=== PATIENT | male | born 1950 | race Caucasian/White ===

== ENCOUNTER → 2021-05-10 12:56 | Outpatient (BNVA) | payer MEDICARE, SELFPAY | PROVIDERS: PCP Internal Medicine; Referring Provider Internal Medicine; Visit Provider Physical Therapy Assistant | DX: L98.9 Disorder of the skin and subcutaneous tissue, unspecified (principal); I10 Essential (primary) hypertension; J44.9 Chronic obstructive pulmonary disease, unspecified; Z87.891 Personal history of nicotine dependence | CPT/HCPCS: 36415; 99203 ==

== ENCOUNTER 2021-05-10 20:25 | Outpatient (REF) | payer MEDICARE, SELFPAY ==
[2021-05-10 15:32] LABS: Abs Immature Grans 0.02 10^3/uL (0.0-0.06); Absolute Basophil Count 0.05 10^3/uL (0.0-0.2); Absolute Eosinophil Count 0.57 10^3/uL (0.0-0.7); Absolute Lymphocyte Count 0.93 10^3/uL (1.2-3.4); Absolute Monocyte Count 1.08 10^3/uL (0.1-0.8); Absolute Neutrophil Count 4.83 10^3/uL (1.2-6.7); Basophils % 0.7; Eosinophils % 7.6; HGB 14.7 g/dL (13.5-17.5); Immature Grans % 0.3; Lymphocytes % 12.4; MCH 36.1 pg (27.0-33.0); MCHC 39.7 % (32.0-36.0); MCV 90.9 fL (80-95); MPV 9.7 fL (8.0-11.0); Monocytes % 14.4; Neutrophils % 64.6; Nucleated RBC 0 %; Platelet Count 252 10^3/uL (130-400); RBC 4.07 10^6/uL (4.36-5.78); RDW 18.5 % (11.8-14.1); WBC 7.48 10^3/uL (4.4-10.8)
[2021-05-10 15:43] LABS: ALT 21 U/L (16-63); AST 16 U/L (15-37); Albumin 4.3 g/dL (3.4-5.0); Alkaline Phosphatase 97 U/L (46-116); Anion Gap 8.3 mmol/L (3-11); BUN 19 mg/dL (7-18); Bilirubin, Total 0.6 mg/dL (0.2-1.0); CO2 25.7 mmol/L (21.0-32.0); Calcium 8.7 mg/dL (8.5-10.1); Chloride 109 mmol/L (98-107); Glucose 80 mg/dL (74-106); Potassium 4.1 mmol/L (3.5-5.1); Sodium 143 mmol/L (136-145); Total Protein 7.5 g/dL (6.4-8.2)
[2021-05-10 15:50] LABS: Anisocytosis 1+; Diff Comment 1; Macrocytosis 1+; Microcytosis 1+
== END 2021-05-10 20:26 | disposition home or self-care (01) ==
LOC: LBN 20:25
PROVIDERS: PCP Internal Medicine; Visit Provider Physical Therapy Assistant
DX: L98.9 Disorder of the skin and subcutaneous tissue, unspecified (principal)
CPT/HCPCS: 80053; 85025

== ENCOUNTER 2021-05-21 01:08 | Outpatient (CLI) | payer MEDICARE, SELFPAY ==
--- NOTE | 2021-05-21 07:15 | DI.CT_ITS ---
Exam(s) CT NECK W EXAM: CT NECK W CLINICAL HISTORY: scalp lesion, Fm Hx head/neck cx and lung cx,l98.9. TECHNIQUE: Imaging Protocol: Axial computed tomography images with coronal and sagittal reformatted images were created and reviewed CONTRAST MATERIAL: Intravenous: Omnipaque 350 Contrast volume:100 cc given for chest CT COMPARISON: CT CT HEAD WO/W from 05/21/2021 FINDINGS: Parotids/submandibular/thyroid gland: Normal. Lymphadenopathy: There numerous bilateral small lymph nodes in the posterior chains, more numerous t granda normal. All are less than a centimeter in size. Multiple small supraclavicular nodes are seen. Carotids/Jugular: Within normal limits. Soft tissues: The floor the mouth is unremarkable. The epiglottis and vocal cords are within normal limits. Images through both lung apices are unremarkable. Bones: degenerative changes in the cervical spine. No lytic or blastic lesions identified. IMPRESSION: Multiple tiny bilateral lymph nodes, more numerous in normal, in posterior changes well as supraclavi cular regions. RADIATION DOSE DELIVERED: 3001.46 mGy.cm Total DLP DATA REPOSITORY: All CT scans at this facility are submitted to the National Radiology Data Registry (NRDR) Dose Index Registry (DIR) with the [employer] (ACR). RADIATION OPTIMIZATION: All CT scans at this facility use at least one of these dose optimization te chniques: automated exposure control; mA and/or kV adjustment per patient size (includes targeted exa ms where dose is matched to clinical indication); or iterative reconstruction.
--- NOTE | 2021-05-21 07:15 | DI.CT_ITS ---
Exam(s) CT HEAD WO/W EXAM: CT HEAD WO/W CLINICAL HISTORY: scalp lesion, Fm Hx head/neck cx and lung cx,l98.9. TECHNIQUE: Imaging Protocol: Axial computed tomography images with coronal and sagittal reformatted images were created and reviewed. CONTRAST MATERIAL: Intravenous: Omnipaque 350 Contrast volume:100 cc given before chest CT. COMPARISON: CT CT CHEST W from 05/21/2021 FINDINGS: Ventricles and Extra axial spaces: Normal in size and morphology for the patient's age. Hemorrhage: None. Cerebral parenchyma: Normal. Enhancement: No suspicious enhancement in the brain.. Midline shift: None. Brainstem/Cerebellum: Normal. Calvarium: Normal. Scalp: Marked abnormal masslike thickening of the skin and underlying soft tissues of the scalp with approximate measurements 4.2 transverse by 1.5 AP by 4.8 cephalo caudad. There is some in extension inferiorly with nodularity along the scalp. Several other bilateral abnormal in the enhancing soft t issue nodules are noted in the subcutaneous fat. This shows enhancement following contrast. No defi nite adjacent bony destruction. Visualized Paranasal sinuses/Mastoids: Mucosal thickening ethmoid and maxillary sinuses. Mastoids cl ear. Orbits: Prosthetic left globe. IMPRESSION: Marked thickening with enhancement of the scalp and underlying subcutaneous fat with extending hot cell technician iorly along the skull. No definite bony invasion. No intracranial abnormality. RADIATION DOSE DELIVERED: Total DLP DATA REPOSITORY: All CT scans at this facility are submitted to the National Radiology Data Registry (NRDR) Dose Index Registry (DIR) with the [employer] (ACR). RADIATION OPTIMIZATION: All CT scans at this facility use at least one of these dose optimization te chniques: automated exposure control; mA and/or kV adjustment per patient size (includes targeted exa ms where dose is matched to clinical indication); or iterative reconstruction.
--- NOTE | 2021-05-21 07:15 | DI.CT_ITS ---
Exam(s) CT CHEST W EXAM: CT CHEST W CLINICAL HISTORY: scalp lesion, Fm Hx head/neck cx and lung cx,l98.9 TECHNIQUE: Imaging Protocol: Axial computed tomography images with coronal and sagittal reformatted images were created and reviewed CONTRAST MATERIAL: Intravenous: Omnipaque 350 Contrast volume:100 cc COMPARISON: No exams were available for comparison FINDINGS: Tracheobronchial tree: No bronchiectasis or mucous plugging. Mediastinum and Gina: No dominant adenopathy or fluid collection. Pulmonary parenchyma: Scattered tiny nodules, likely granulomas. No consolidation or dominant measura ble mass. Pleura: No effusion or pneumothorax. Heart: The heart is not dilated. No coronary artery calcifications are seen. Aorta: Thoracic aorta non-dilated. Upper abdomen: Kidneys are partially included on the exam. There is abnormal masslike soft tissue de nsity in the region of the renal pelves bilaterally there are tiny nonobstructing bilateral stones. T he nephrograms are symmetric. Small cysts are noted at the upper pole of the left kidney. The spleen is abnormally enlarged, 15 cm AP. It is not fully included on the exam. No focal splenic lesion. The liver and gallbladder as well as adrenals and visualized portions of the pancreas are unremarkable. Lymph nodes: Multiple bilateral axillary lymph nodes, largest measuring 15 millimeters, more numerous than usual. Bones: No lytic or blastic lesions. Mild degenerative changes in the spine. Soft tissues: Unremarkable. IMPRESSION: Multiple small bilateral axillary lymph nodes, more numerous than normal. Abnormal soft tissue density bilaterally in the renal pelves. Further evaluation with abdomen pelvic CT is recommended. Splenomegaly. RADIATION DOSE DELIVERED: Total DLP DATA REPOSITORY: All CT scans at this facility are submitted to the National Radiology Data Registry (NRDR) Dose Index Registry (DIR) with the [employer] (ACR). RADIATION OPTIMIZATION: All CT scans at this facility use at least one of these dose optimization te chniques: automated exposure control; mA and/or kV adjustment per patient size (includes targeted exa ms where dose is matched to clinical indication); or iterative reconstruction.
[2021-05-21] MEDS: Omnipaque 350 MG/ML 100 ML BTL IJ (09:16)
== END 2021-05-21 01:28 ==
PROVIDERS: PCP Internal Medicine; Visit Provider Physical Therapy Assistant
DX: L98.8 Other specified disorders of the skin and subcutaneous tissue (principal); Z80.1 Family history of malignant neoplasm of trachea, bronchus and lung; Z80.8 Family history of malignant neoplasm of other organs or systems; R59.0 Localized enlarged lymph nodes; N20.0 Calculus of kidney; N28.1 Cyst of kidney, acquired; R16.1 Splenomegaly, not elsewhere classified; R93.89 Abnormal findings on diagnostic imaging of other specified body structures; R23.4 Changes in skin texture
CPT/HCPCS: 70491; 70470; 71260; J3490

== ENCOUNTER 2021-05-29 02:00 | Outpatient (CLI) | payer MEDICARE, SELFPAY ==
--- NOTE | 2021-05-29 07:15 | DI.CT_ITS ---
Exam(s) CT ABDOMEN WO/W EXAM: CT ABDOMEN WO/W CLINICAL HISTORY: enlarged nodes/spleen,scalp lesion,r16.1,r59.1,l98.9 TECHNIQUE: Imaging Protocol: Axial computed tomography images with coronal and sagittal reformatted images were created and reviewed CONTRAST MATERIAL: Intravenous: Omnipaque 350 Contrast volume:100 mL Oral: No COMPARISON: CT CT CHEST W from 05/21/2021 FINDINGS: ABDOMEN: Lung Bases: Normal where visualized. Liver: Normal density. No measurable mass. The liver measures 19.5 cm long. Portal, Superior Mesenteric, and Splenic Veins: Unremarkable. Gallbladder and Biliary Tract: No radiodense calculus or dilation. Pancreas: Normal density, no abnormal calcifications or inflammatory process. Spleen: The spleen measures 15 cm long. Adrenals: No masses seen. Kidneys: Normal size, contour and axis. There are multiple bilateral nonobstructing stones. The larg est is in the midpole of the left kidney and measures 0.6 cm. There is wall thickening of the proxim al renal pelves bilaterally, left greater than right. It measures up to 1.1 cm on the left. There i s no hydronephrosis present. Bilateral renal cysts are present. They appear simple. The largest is in the left kidney and measures 2 cm. Abdominal Aorta: Abdominal portion non-dilated. Atherosclerosis. Bowel: No obstruction or bowel wall thickening. There is diverticulosis seen in the colon, but no ev idence of acute diverticulitis. Peritoneal Cavity: No ascites, collection or mesenteric inflammatory response. No free air. Lymph Nodes: Within normal limits. Bones: Within normal limits for the patient's age. Soft Tissues: Unremarkable. IMPRESSION: 1. Diffuse wall thickening of the renal pelves bilaterally, left greater than right. Differential co nsiderations include neoplasm, infectious/inflammatory pyelitis. Urology consult is recommended for further evaluation. 2. Bilateral nephrolithiasis. 3. Hepatosplenomegaly. 4. Colonic diverticulosis. No evidence of acute diverticulitis. 5. Bilateral simple renal cysts. RADIATION DOSE DELIVERED: 1,681.65mGy.cm Total DLP DATA REPOSITORY: All CT scans at this facility are submitted to the National Radiology Data Registry (NRDR) Dose Index Registry (DIR) with the [employer] (ACR). RADIATION OPTIMIZATION: All CT scans at this facility use at least one of these dose optimization te chniques: automated exposure control; mA and/or kV adjustment per patient size (includes targeted exa ms where dose is matched to clinical indication); or iterative reconstruction.
[2021-05-29] MEDS: Omnipaque 350 MG/ML 100 ML BTL IJ (09:39)
[2021-05-29] MEDS: Normal Saline Flush 10 ML SYR IVP (09:40)
== END 2021-05-29 02:20 ==
PROVIDERS: PCP Internal Medicine; Visit Provider Surgery
DX: R16.2 Hepatomegaly with splenomegaly, not elsewhere classified (principal); R59.1 Generalized enlarged lymph nodes; N20.0 Calculus of kidney; N28.1 Cyst of kidney, acquired; K57.30 Diverticulosis of large intestine without perforation or abscess without bleeding; N28.89 Other specified disorders of kidney and ureter
CPT/HCPCS: 74170; J3490

== ENCOUNTER 2021-06-06 01:22 | Outpatient (CLI) | payer MEDICARE, SELFPAY ==
--- NOTE | 2021-06-06 07:30 | DI.US_ITS ---
Exam(s) US RENAL EXAM: US RENAL CLINICAL HISTORY: mass in kidney/hx of smoking,n28.89. TECHNIQUE: Arellano scale, color and spectral Doppler were used. COMPARISON: CT CT ABDOMEN WO/W from 05/29/2021 FINDINGS: Renal size in cm: Right: 9.9 left: 10.8 Echogenicity: Cortical echogenicity is normal. There is abnormal intermediate echogenicity within mariella th renal pelves extending along the inferomedial aspect of both kidneys this corresponds with the abn ormal densities seen on recent CT. This is not well visualized by ultrasound. The findings on CT ar e suspicious for masses. Hydronephrosis: No Cyst or mass: 1 centimeters cyst upper pole left kidney. 9 millimeters cyst near the near the lower pole of the right kidney. Nephrolithiasis: No Bladder:Normal Prevoid vol:177 cc Postvoid vol:Patient unable to void. Prostate volume 13 cc IMPRESSION: Abnormal masslike densities in the region of both renal pelves and extending inferiorly along the me dial aspect of both kidneys bilateral stones and cysts are present. There is no hydronephrosis. DATA REPOSITORY:
== END 2021-06-06 01:42 ==
PROVIDERS: PCP Internal Medicine; Visit Provider Surgery
DX: N28.89 Other specified disorders of kidney and ureter (principal); Z87.891 Personal history of nicotine dependence; N28.1 Cyst of kidney, acquired
CPT/HCPCS: 76770

== ENCOUNTER 2021-06-13 10:19 | Emergency (ER) | payer MEDICARE, SELFPAY ==
[2021-06-13 10:23] VITALS: BP 153/72; PULSE 70; RESP 16; TEMP 36.4; O2SAT 98
--- NOTE | 2021-06-13 10:30 | DI.RAD_ITS ---
Exam(s) XR TIB/FIB RT EXAM: XR TIB/FIB RT CLINICAL HISTORY: Proximal leg pain TECHNIQUE: COMPARISON: No exams were available for comparison FINDINGS: Three views were obtained. No bony or soft tissue abnormality seen. IMPRESSION: RADIATION DOSE DELIVERED: Total DLP
--- NOTE | 2021-06-13 10:30 | DI.US_ITS ---
Exam(s) US LOWER EXTREMITY VENOUS RT EXAM: US LOWER EXTREMITY VENOUS RT CLINICAL HISTORY: Right lower leg swelling and pain. TECHNIQUE: Ultrasound performed using standard protocol. COMPARISON: US US RENAL from 06/06/2021 FINDINGS: Duplex venous ultrasound was performed according to the usual protocol. The deep veins are freely com pressible throughout and there is normal flow augmentation with manual calf compression. 2D and Doppl er evaluation are unremarkable. IMPRESSION: No evidence of deep venous thrombosis of the right lower extremity. DATA REPOSITORY:
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
== END 2021-06-13 11:57 | disposition home or self-care (01) ==
PROVIDERS: Emergency Provider Nurse Practitioner Family; PCP Internal Medicine
DX: M79.604 Pain in right leg (principal); R22.41 Localized swelling, mass and lump, right lower limb
CPT/HCPCS: 99284; 73590; 93971; 99283

== ENCOUNTER → 2021-06-18 14:13 | Outpatient (BNVA) | payer MEDICARE, SELFPAY | PROVIDERS: PCP Internal Medicine; Referring Provider Internal Medicine; Visit Provider Surgery | DX: R22.0 Localized swelling, mass and lump, head (principal); N28.89 Other specified disorders of kidney and ureter | CPT/HCPCS: 11626; 99213 ==

== ENCOUNTER 2021-06-18 16:37 | Outpatient (REF) | payer MEDICARE, SELFPAY ==
--- NOTE | 2021-06-18 15:00 | SKI_PTH ---
PATIENT: Layton Fuller LOC: [facility] U#:[id number] AGE/SX: 71/M ROOM: RE06/18/[address]: Pauline Becerra : 1950 BED: DIS: 06/18/2021 SPEC #: [id number] RECD: 06/18/21 16:55 STATUS: WIL DONALDSON #: [id number] ZACH: 06/18/21 15:[address]: Pauline Becerra DEPT: Surgical Specimen RECD BY: Jennifer Mccloud ENTERED: 06/18/21 16:55 SP TYPE: NICOLLE GALVAN DR: Lisha Hanna Tissues: 1 - SKIN BIOPSY(SHAVE/PUNCH) Procedures: IMMUNOPEROXIDASE STAIN SKIN LEVEL 4 Single Probe In Situ Hybridization MIB-1 IHC Semi Quantative % B-Cell Lymphoma, FISH, Tissue BLYM, Additional Probe BCL-6 IHC Stain BCL-2 IHC Stain MYC IHC Stain Comments: [id number]
== END 2021-06-18 16:38 | disposition home or self-care (01) ==
LOC: LBN 16:37
PROVIDERS: PCP Internal Medicine; Visit Provider Surgery
DX: R22.0 Localized swelling, mass and lump, head (principal)
CPT/HCPCS: 88341; 88360; 88368; 88377; 88305; 88361

== ENCOUNTER 2021-06-18 21:10 | Outpatient (REF) | payer MEDICARE, SELFPAY | END 2021-06-18 21:11 | disposition home or self-care (01) | LOC: LBN 21:10 | PROVIDERS: PCP Internal Medicine; Visit Provider Surgery ==

== ENCOUNTER → 2021-06-20 08:38 | Outpatient (BNVA) | payer MEDICARE, SELFPAY | PROVIDERS: PCP Internal Medicine; Referring Provider Internal Medicine; Visit Provider Nurse Practitioner Gerontology | DX: N28.89 Other specified disorders of kidney and ureter (principal) | CPT/HCPCS: 51798; 81003; 99215 ==

== ENCOUNTER → 2021-06-28 09:20 | Outpatient (BNVA) | payer MEDICARE, SELFPAY | PROVIDERS: PCP Internal Medicine; Referring Provider Internal Medicine; Visit Provider Surgery | DX: C85.19 Unspecified B-cell lymphoma, extranodal and solid organ sites (principal) | CPT/HCPCS: 99214 ==

== ENCOUNTER 2021-12-19 15:01 | Outpatient (CLI) | payer MEDICARE, SELFPAY ==
[2021-12-19 14:02] LABS: Absolute Eosinophil Count 0.07 10^3/uL (0.0-0.7); HCT 23.9 % (40.0-50.0); MCH 28.5 pg (27.0-33.0); MCHC 33.5 % (32.0-36.0); MCV 85 fL (80-95); MPV 9.8 fL (8.0-11.0); RBC 2.81 10^6/uL (4.36-5.78); RDW 15.6 % (11.8-14.1); RDW-SD 48.3 fL
[2021-12-19 14:10] LABS: ALT 24 U/L (16-63); AST 16 U/L (15-37); Albumin 3.1 g/dL (3.4-5.0); Alkaline Phosphatase 110 U/L (46-116); BUN 39 mg/dL (7-18); Bilirubin, Total 0.3 mg/dL (0.2-1.0); CREATININE 1.6 mg/dL (0.70-1.30); Calcium 9.1 mg/dL (8.5-10.1); Chloride 105 mmol/L (98-107); Estimated GFR 46.35 (mL/min/1.73m2); Glucose 81 mg/dL (74-106); LDH 208 U/L (85-227); Potassium 3.3 mmol/L (3.5-5.1); Sodium 141 mmol/L (136-145); Total Protein 5.8 g/dL (6.4-8.2)
[2021-12-19 14:36] LABS: Absolute Lymphocyte Count 0.32 10^3/uL (1.2-3.4); Atypical Lymphocytes % 0; Platelet Count 76 10^3/uL (130-400)
[2021-12-19 14:37] LABS: Absolute Monocyte Count 0.04 10^3/uL (0.1-0.8); Other Cells % 2
[2021-12-19 14:38] LABS: Absolute Neutrophil Count 0.02 10^3/uL (1.2-6.7)
[2021-12-19 14:39] LABS: WBC 0.45 10^3/uL (4.4-10.8)
[2021-12-19 14:42] LABS: RBC Morphology Normal
[2021-12-19 16:52] LABS: PHOSPHORUS 2.9 mg/dL (2.6-4.7); Uric Acid 5.1 mg/dL (3.5-7.2)
== END 2021-12-19 15:02 | disposition home or self-care (01) ==
LOC: LBO 15:02
PROVIDERS: PCP Internal Medicine; Visit Provider Internal Medicine Hematology & Oncology
DX: C83.38 Diffuse large B-cell lymphoma, lymph nodes of multiple sites (principal)
CPT/HCPCS: 36415; 80053; 83615; 84100; 84550; 85025

== ENCOUNTER 2021-12-26 11:14 | Outpatient (CLI) | payer MEDICARE, SELFPAY ==
[2021-12-26 08:36] LABS: HCT 25.2 % (40.0-50.0); HGB 8.1 g/dL (13.5-17.5); MCH 28.9 pg (27.0-33.0); MCHC 32.1 % (32.0-36.0); MCV 90 fL (80-95); MPV 9.1 fL (8.0-11.0); Platelet Count 191 10^3/uL (130-400); RDW-SD 52.5 fL; WBC 14.83 10^3/uL (4.4-10.8)
[2021-12-26 08:51] LABS: ALT 93 U/L (16-63); AST 29 U/L (15-37); Absolute Monocyte Count 0.44 10^3/uL (0.1-0.8); Albumin 3.3 g/dL (3.4-5.0); Alkaline Phosphatase 256 U/L (46-116); Anion Gap 4.4 mmol/L (3-11); BUN 17 mg/dL (7-18); Bands % 6; Bilirubin, Total 0.3 mg/dL (0.2-1.0); CO2 30.6 mmol/L (21.0-32.0); CREATININE 1.6 mg/dL (0.70-1.30); Calcium 8.6 mg/dL (8.5-10.1); Chloride 107 mmol/L (98-107); Diff Comment Manual Differential; Estimated GFR 46.35 (mL/min/1.73m2); Glucose 88 mg/dL (74-106); LDH 187 U/L (85-227); Metamyelocytes % 4; RBC Morphology Normal; Sodium 142 mmol/L (136-145); Total Protein 6.2 g/dL (6.4-8.2)
[2021-12-26 10:07] LABS: Uric Acid 4.6 mg/dL (3.5-7.2)
== END 2021-12-26 11:15 | disposition home or self-care (01) ==
LOC: LBO 11:15
PROVIDERS: PCP Internal Medicine; Visit Provider Internal Medicine Hematology & Oncology
DX: C83.38 Diffuse large B-cell lymphoma, lymph nodes of multiple sites
CPT/HCPCS: 36415; 80053; 83615; 84550; 85025

== ENCOUNTER 2022-01-23 08:00 | Outpatient (RCR) | payer MEDICARE, SELFPAY ==
[2022-01-02] MEDS: Normal Saline Flush 10 ML SYR IVP (08:22)
[2022-01-02 08:44] LABS: MCH 29.6 pg (27.0-33.0); MCHC 33.3 % (32.0-36.0); MCV 89 fL (80-95); MPV 8.8 fL (8.0-11.0); Platelet Count 434 10^3/uL (130-400); RBC 3.04 10^6/uL (4.36-5.78); RDW 18.6 % (11.8-14.1); RDW-SD 55.8 fL; WBC 12.72 10^3/uL (4.4-10.8)
[2022-01-02 09:15] LABS: Absolute Basophil Count 0.13 10^3/uL (0.0-0.2); Absolute Lymphocyte Count 0.38 10^3/uL (1.2-3.4); Absolute Monocyte Count 1.14 10^3/uL (0.1-0.8); Absolute Neutrophil Count 10.43 10^3/uL (1.2-6.7); Bands % 7; Diff Comment Manual Differential; Metamyelocytes % 3; Myelocytes % 2; RBC Morphology Normal
[2022-01-02 09:29] LABS: ALT 22 U/L (16-63); AST 13 U/L (15-37); Albumin 3.4 g/dL (3.4-5.0); Alkaline Phosphatase 197 U/L (46-116); BUN 27 mg/dL (7-18); Bilirubin, Total 0.2 mg/dL (0.2-1.0); CREATININE 1.1 mg/dL (0.70-1.30); Calcium 8.3 mg/dL (8.5-10.1); Chloride 108 mmol/L (98-107); Estimated GFR 72.67 (mL/min/1.73m2); Glucose 93 mg/dL (74-106); LDH 183 U/L (85-227); Potassium 4.3 mmol/L (3.5-5.1); Sodium 143 mmol/L (136-145); Total Protein 6.5 g/dL (6.4-8.2); Uric Acid 3.6 mg/dL (3.5-7.2)
[2022-01-09] MEDS: Heparin 500 UNITS/5 ML SYRINGE IV (10:17)
[2022-01-09] MEDS: Normal Saline Flush 10 ML SYR IVP (10:17)
[2022-01-09 10:25] LABS: HCT 25.6 % (40.0-50.0); HGB 8.6 g/dL (13.5-17.5); MCH 29.1 pg (27.0-33.0); MCHC 33.6 % (32.0-36.0); MCV 87 fL (80-95); MPV 8.9 fL (8.0-11.0); Platelet Count 237 10^3/uL (130-400); RBC 2.96 10^6/uL (4.36-5.78); RDW 18.6 % (11.8-14.1); RDW-SD 57.1 fL; WBC 3.91 10^3/uL (4.4-10.8)
[2022-01-09 10:40] LABS: ALT 21 U/L (16-63); AST 13 U/L (15-37); Albumin 3.3 g/dL (3.4-5.0); Alkaline Phosphatase 155 U/L (46-116); Anion Gap 7.1 mmol/L (3-11); BUN 33 mg/dL (7-18); Bilirubin, Total 0.2 mg/dL (0.2-1.0); CO2 26.9 mmol/L (21.0-32.0); CREATININE 1.2 mg/dL (0.70-1.30); Calcium 8.2 mg/dL (8.5-10.1); Chloride 107 mmol/L (98-107); Estimated GFR 65.46 (mL/min/1.73m2); Glucose 90 mg/dL (74-106); LDH 117 U/L (85-227); Potassium 4.3 mmol/L (3.5-5.1); Sodium 141 mmol/L (136-145); Uric Acid 3.8 mg/dL (3.5-7.2)
[2022-01-09 10:53] LABS: Absolute Neutrophil Count 3.25 10^3/uL (1.2-6.7)
[2022-01-09 10:54] LABS: Absolute Basophil Count 0.12 10^3/uL (0.0-0.2); Absolute Lymphocyte Count 0.35 10^3/uL (1.2-3.4); Atypical Lymphocytes % 1; Diff Comment Manual Differential; RBC Morphology Normal
[2022-01-23 08:36] LABS: Absolute Basophil Count 0.07 10^3/uL (0.0-0.2); Absolute Eosinophil Count 0.08 10^3/uL (0.0-0.7); Absolute Lymphocyte Count 0.54 10^3/uL (1.2-3.4); Absolute Monocyte Count 0.84 10^3/uL (0.1-0.8); Absolute Neutrophil Count 3.62 10^3/uL (1.2-6.7); Basophils % 1.3; Eosinophils % 1.5; HCT 29.2 % (40.0-50.0); HGB 9.9 g/dL (13.5-17.5); Immature Grans % 1.9; Lymphocytes % 10.3; MCH 30.3 pg (27.0-33.0); MCHC 33.9 % (32.0-36.0); MCV 89 fL (80-95); MPV 8.6 fL (8.0-11.0); Platelet Count 230 10^3/uL (130-400); RBC 3.27 10^6/uL (4.36-5.78); RDW-SD 66.1 fL; WBC 5.25 10^3/uL (4.4-10.8)
[2022-01-23] MEDS: Normal Saline Flush 10 ML SYR IVP (08:45)
[2022-01-23 08:47] LABS: Anisocytosis 2+; Diff Comment RBC Morph Reviewed
[2022-01-23 08:52] LABS: ALT 15 U/L (16-63); AST 13 U/L (15-37); Albumin 3.5 g/dL (3.4-5.0); Alkaline Phosphatase 104 U/L (46-116); Anion Gap 4.8 mmol/L (3-11); BUN 34 mg/dL (7-18); Bilirubin, Total 0.3 mg/dL (0.2-1.0); CO2 28.2 mmol/L (21.0-32.0); CREATININE 1.1 mg/dL (0.70-1.30); Calcium 8.7 mg/dL (8.5-10.1); Chloride 107 mmol/L (98-107); Estimated GFR 72.67 (mL/min/1.73m2); Glucose 98 mg/dL (74-106); LDH 121 U/L (85-227); Potassium 4.2 mmol/L (3.5-5.1); Sodium 140 mmol/L (136-145); Total Protein 6.2 g/dL (6.4-8.2); Uric Acid 5.2 mg/dL (3.5-7.2)
== END 2022-01-23 23:59 | disposition home or self-care (01) ==
LOC: INF 08:00
PROVIDERS: PCP Internal Medicine; Visit Provider Internal Medicine Hematology & Oncology
DX: C83.38 Diffuse large B-cell lymphoma, lymph nodes of multiple sites (principal); Z45.2 Encounter for adjustment and management of vascular access device
CPT/HCPCS: 36591; 80053; 86850; 86900; 86901; 83615; 84550; 85025

== ENCOUNTER 2022-01-30 09:38 | Inpatient (IN) | payer MEDICARE, SELFPAY ==
[2022-01-30] VITALS (12 sets, daily range): BP systolic 107–158; BP diastolic 55–81; PULSE 81–105; RESP 15–18; TEMP 36.6–38; O2SAT 97–100
--- NOTE | 2022-01-30 10:00 | DI.CT_ITS ---
Exam(s) CT FACIAL W EXAM: CT FACIAL W CLINICAL HISTORY: fever, tooth infection ? #10 TECHNIQUE: COMPARISON: CT CT NECK W from 05/21/2021 FINDINGS: CT examination of the facial region was performed utilizing multi slice acquisition and multiplanar r econstruction. This examination was obtained with intravenous infusion of 100 cc of Omnipaque 350. Visualized portions of the brain are unremarkable. Left optic globe prosthesis noted. No intra orbi zak fluid collection or mass. Mild mucoperiosteal thickening of ethmoid air cells noted consistent with mild chronic sinusitis. No gross erosive or destructive process seen in the region surveyed. There is poor dentition. No gr oss mandibular or maxillary erosive or destructive lesion seen. Visualized upper airway is unremarka ble. IMPRESSION: No facial abscess or significant bony destructive lesion. RADIATION DOSE DELIVERED: 565.25mGy.cm Total DLP DATA REPOSITORY: All CT scans at this facility are submitted to the National Radiology Data Registry (NRDR) Dose Index Registry (DIR) with the [employer] (ACR). RADIATION OPTIMIZATION: All CT scans at this facility use at least one of these dose optimization te chniques: automated exposure control; mA and/or kV adjustment per patient size (includes targeted exa ms where dose is matched to clinical indication); or iterative reconstruction.
[2022-01-30 10:36] LABS: HCT 24.4 % (40.0-50.0); HGB 8.4 g/dL (13.5-17.5); MCH 30.7 pg (27.0-33.0); MCHC 34.4 % (32.0-36.0); MCV 89 fL (80-95); Platelet Count 116 10^3/uL (130-400); RBC 2.74 10^6/uL (4.36-5.78); RDW 20.1 % (11.8-14.1); RDW-SD 63.6 fL
[2022-01-30 10:38] LABS: Lactate 0.5 mmol/L (0.9-1.7)
[2022-01-30] MEDS: Normal Saline-STERILE FIELD 0.9% 10 ML SYR (10:45)
[2022-01-30] MEDS: Normal Saline 500 ML IV (10:45)
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
[2022-01-30 10:56] LABS: Bilirubin Negative (Negative); Blood Negative (Negative); Clarity Clear (Clear); Glucose Negative (Negative); Ketones Negative (Negative); Leukocyte Esterase Negative (Negative); Nitrite Negative (Negative); Specific Gravity 1.025 (1.005-1.025); Urobilinogen 0.2 EU/dL (Up TO 0.2)
[2022-01-30 10:58] LABS: ALT 17 U/L (16-63); AST 16 U/L (15-37); Albumin 3.5 g/dL (3.4-5.0); Alkaline Phosphatase 105 U/L (46-116); Anion Gap 6.7 mmol/L (3-11); BUN 32 mg/dL (7-18); Bilirubin, Total 0.4 mg/dL (0.2-1.0); CO2 28.3 mmol/L (21.0-32.0); CREATININE 0.9 mg/dL (0.70-1.30); Calcium 8.4 mg/dL (8.5-10.1); Chloride 102 mmol/L (98-107); Estimated GFR 92.45 (mL/min/1.73m2); Glucose 76 mg/dL (74-106); Magnesium 1.6 mg/dL (1.8-2.4); Potassium 4.2 mmol/L (3.5-5.1); Sodium 137 mmol/L (136-145); Total Protein 6.1 g/dL (6.4-8.2)
[2022-01-30 11:05] LABS: Bands % 2
[2022-01-30 11:06] LABS: Absolute Basophil Count 0.03 10^3/uL (0.0-0.2); Absolute Lymphocyte Count 0.19 10^3/uL (1.2-3.4); Absolute Monocyte Count 0.03 10^3/uL (0.1-0.8); Absolute Neutrophil Count 0.29 10^3/uL (1.2-6.7); WBC 0.63 10^3/uL (4.4-10.8)
[2022-01-30 11:07] LABS: Anisocytosis 2+; Diff Comment Manual Differential
[2022-01-30 11:11] LABS: Influenza A PCR Negative (Negative); Influenza B PCR Negative (Negative); RSV PCR Negative (Negative)
--- NOTE | 2022-01-30 11:15 | DI.CT_ITS ---
Exam(s) CT CHEST WO EXAM: CT CHEST WO CLINICAL HISTORY: fever, cough TECHNIQUE: CT examination of the chest was performed without contrast administration. COMPARISON: CT CT CHEST W from 05/21/[address] FACIAL W from 01/30/2022 FINDINGS: Images obtained through the upper abdomen show unremarkable appearance of visualized portions of the liver and spleen except for possible mild splenomegaly. Note is made of a nonobstructing right josé miguel l calculus. There are presumed small left renal cysts. There is no mediastinal or hilar adenopathy. Mediastinal vascular structures appear intact by noncon trast criteria. Tracheobronchial tree appears intact. No pleural effusion or pleural-based mass. The lungs are predominantly clear, however there is a new irregular 7 millimeter mean diameter pulmon christian nodule in the right lower lobe at the lung base posteriorly which was not present on prior CT of April 2021. In this setting of neoplastic disease, this would be suspicious for metastasis. No heriberto tional suspicious nodule or consolidation seen. Note is made of new destructive lesion left scapula, this was not present prior examination. No othe r focal bony lesion identified.. IMPRESSION: New left scapular destructive lesion, suspicious for metastatic disease. New right lower lobe pulmonary nodule, 7 millimeter, also suspicious for metastatic disease RADIATION DOSE DELIVERED: 510.87mGy.cm Total DLP !Error CTDIvol 510.87mGy.cm Total DLP DATA REPOSITORY: All CT scans at this facility are submitted to the National Radiology Data Registry (NRDR) Dose Index Registry (DIR) with the [employer] ([employer]). RADIATION OPTIMIZATION: All CT scans at this facility use at least one of these dose optimization te chniques: automated exposure control; mA and/or kV adjustment per patient size (includes targeted exa ms where dose is matched to clinical indication); or iterative reconstruction.
[2022-01-30 11:16] LABS: Source Nasopharynx
[2022-01-30 11:17] LABS: COVID-19 PCR Positive (Negative)
[2022-01-30] MEDS: Omnipaque 350 MG/ML 500 ML BTL-Imaging package IJ (11:48)
[2022-01-30] MEDS: Normal Saline - Diluent 50 ML VIAL IJ (11:49)
[2022-01-30] MEDS: CEFEPIME 2 GM in Normal Saline 100 ML IVPB ×2 (11:59→18:05)
[2022-01-30] MEDS: Magnesium Oxide 400 MG TAB PO (11:59)
[2022-01-30] MEDS: REMDESIVIR 200 MG in Normal Saline 250 ML 250 MG IVPB (12:36)
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
[2022-01-30 16:23] LABS: Lab Add On Test DONE
[2022-01-30 17:14] LABS: D-Dimer 303 ng/mlFEU (<500)
[2022-01-30] MEDS: Heparin 5,000 UNITS/ML VIAL 5000 UNITS SC (18:10)
[2022-01-30 18:36] LABS: Procalcitonin 0.1 ng/mL
[2022-01-30] MEDS: Acyclovir 400 MG TAB PO (19:36)
[2022-01-30] MEDS: Pantoprazole 40 MG TABCR PO (19:36)
[2022-01-30] MEDS: Normal Saline Flush 10 ML SYR IVP (19:41)
[2022-01-30] MEDS: Latanoprost 0.005% 2.5 ML BTL OP (22:35)
[2022-01-30] MEDS: Acetaminophen 325 MG TAB PO (22:41)
[2022-01-31] MEDS: CEFEPIME 2 GM in Normal Saline 100 ML IVPB ×3 (01:33→20:16)
[2022-01-31] MEDS: Normal Saline Flush 10 ML SYR IVP ×4 (01:34→20:16)
[2022-01-31] MEDS: Heparin 5,000 UNITS/ML VIAL 5000 UNITS SC ×3 (01:35→18:29)
[2022-01-31 03:39] LABS: Lab Add On Test DONE
[2022-01-31 07:10] LABS: Abs Immature Grans 0.01 10^3/uL (0.0-0.06); Absolute Basophil Count 0.01 10^3/uL (0.0-0.2); Absolute Eosinophil Count 0.06 10^3/uL (0.0-0.7); Absolute Lymphocyte Count 0.14 10^3/uL (1.2-3.4); Absolute Monocyte Count 0.05 10^3/uL (0.1-0.8); HCT 24.2 % (40.0-50.0); HGB 8.3 g/dL (13.5-17.5); MCHC 34.3 % (32.0-36.0); MCV 90 fL (80-95); MPV 9.8 fL (8.0-11.0); Platelet Count 104 10^3/uL (130-400); RBC 2.68 10^6/uL (4.36-5.78); RDW 19.8 % (11.8-14.1); RDW-SD 63.3 fL
[2022-01-31 07:16] LABS: WBC 0.32 10^3/uL (4.4-10.8)
[2022-01-31 07:28] LABS: Magnesium 1.7 mg/dL (1.8-2.4)
[2022-01-31 08:07] VITALS: BP 138/80; PULSE 79; RESP 16; TEMP 37; O2SAT 100
[2022-01-31 08:07] LABS: Bands % 1
[2022-01-31 08:08] LABS: Absolute Neutrophil Count 0.06 10^3/uL (1.2-6.7); Diff Comment Manual Differential; Hypochromasia 2+
[2022-01-31] MEDS: Cholecalciferol (Vitamin D3) 1,000 UNIT TAB 1000 UNITS PO (08:08)
[2022-01-31] MEDS: Fluconazole 100 MG TAB 200 MG PO (08:09)
[2022-01-31] MEDS: levoFLOXacin 250 MG TAB 750 MG PO (08:09)
[2022-01-31] MEDS: Pantoprazole 40 MG TABCR PO ×2 (08:10→20:17)
[2022-01-31] MEDS: Dronabinol 2.5 MG CAP PO ×2 (11:40→17:01)
[2022-01-31] MEDS: Acyclovir 400 MG TAB PO ×2 (11:40→20:15)
[2022-01-31] MEDS: REMDESIVIR 100 MG in Normal Saline 250 ML 250 MG IVPB (12:52)
[2022-01-31 15:43] VITALS: BP 124/63; PULSE 94; RESP 18; TEMP 37.2; O2SAT 100
--- NOTE | 2022-01-31 16:24 | W.PM.PROGNOT ---
Date of Service Date of service: 01/31/22 Time of Service: 16:24 Assessment and Plan Assessment and plan (1) Neutropenia: Status: Acute Assessment and plan: Secondary to his 3rd cycle of R-CHOP on 01/23/22. Not hospitalized with the previous 2 cycles. He endorsed to hospitalist that he had no fever at home but was having chills. Cont cefepime, levaquin, diflucan and acyclovir. MRSA screen pending. Monitor daily CBC. continue airborne precautions. So far blood cultures no growth x 24hr Professional time spent interviewing and examining patient, discussion of goals of care with hospital team (care management, nursing and consulting professionals) was 20 minutes. (2) COVID: Status: Acute Assessment and plan: No pulmonary findings on imaging. He has endorsed a cough with sputum. On cefepime. Procalcitonin 0.1, will recheck but continue empiric antibiotics until repeat procalcitonin remains negative and his WBC is recovering. Remdesivir treatment initiated d/t his risk of worsening Covid. Not requiring steroids as he has no incr. oxygen needs. (3) B-cell lymphoma of extranodal site: Status: Acute Assessment and plan: S/P 3 cycles of R-CHOP. Imaging today shows a new scapular lesion and a new pulmonary lesion that are suspicious for mets. (4) COPD (chronic obstructive pulmonary disease): Status: Chronic Assessment and plan: No exacerbation. PRN albuterol available. (5) Discharge planning issues: Status: Acute Assessment and plan: DNR/DNI Likely will d/c to home w/o services. Subjective Subjective Interval history since last seen: Patient states that he has had some productive cough of yellowish mucous. No fever or chills. No chest pains. I discussed w/ him his CT chest results. No pneumonia but he has new RLL nodule 7 mm suspicious for metastatic lesion and also a left scapular lesion also suspicious for mets. He was unaware of this. He reports having had recent PET/CT and that Dr. Palafox went over this with him. I told him that I would call her tomorrow to discuss his current CT findings and compare to his recent PET scan. I also told him that his ANC has dropped further to 6 Exam Narrative Exam Narrative: Layton is walking about his room. No dyspnea w/ activity. Not requiring supplemental oxygen Lungs: some coarse basilar breath sounds, no wheezing or rhonchi Heart: RRR Abdomen: soft, nontender Oropharynx: he has lost a tooth in the left upper jaw, one of his incisors and he has some residual tooth w/ caries Objective Last Vital Signs Temp 37.2 C 01/31/22 15:43 Pulse 94 H 01/31/22 15:43 Resp 18 01/31/22 15:43 BP 124/63 01/31/22 15:43 Pulse Ox 100 01/31/22 15:43 Laboratory Results - last 24 hr 01/30/22 01/30/22 01/30/22 10:23 12:23 Unknown WBC RBC Hgb Hct MCV MCH MCHC RDW Plt Count MPV Immature Gran % Neutrophils % Band Neutrophils % Lymphocytes % Monocytes % Eosinophils % Basophils % Nucleated RBC % Absolute Neutrophils Absolute Lymphocytes Absolute Monocytes Absolute Eosinophils Absolute Basophils RBC Morphology Hypochromasia D-Dimer 303 Magnesium Procalcitonin 0.1 Add-On Test Request DONE 01/31/22 01/31/22 06:20 06:20 WBC 0.32 L* RBC 2.68 L Hgb 8.3 L Hct 24.2 L MCV 90 MCH 31.0 MCHC 34.3 RDW 19.8 H Plt Count 104 L MPV 9.8 Immature Gran % See Differential Neutrophils % 18.0 Band Neutrophils % 1 Lymphocytes % 43.0 Monocytes % 17.0 Eosinophils % 18.0 Basophils % 4.0 Nucleated RBC % 0.0 Absolute Neutrophils 0.06 L* Absolute Lymphocytes 0.14 L Absolute Monocytes 0.05 L Absolute Eosinophils 0.06 Absolute Basophils 0.01 RBC Morphology See Below Hypochromasia 2+ D-Dimer Magnesium 1.7 L Procalcitonin Add-On Test Request
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
[2022-01-31 19:35] VITALS: BP 109/63; PULSE 84; RESP 17; TEMP 37.6; O2SAT 98
[2022-01-31] MEDS: Magnesium Oxide 400 MG TAB 800 MG PO (20:16)
[2022-01-31] MEDS: Latanoprost 0.005% 2.5 ML BTL OP (21:47)
[2022-01-31 23:34] VITALS: BP 108/61; PULSE 82; RESP 16; TEMP 37.2; O2SAT 98
[2022-02-01] MEDS: Heparin 5,000 UNITS/ML VIAL 5000 UNITS SC ×3 (01:21→18:08)
[2022-02-01] MEDS: CEFEPIME 2 GM in Normal Saline 100 ML IVPB ×3 (03:37→20:43)
[2022-02-01] MEDS: Normal Saline Flush 10 ML SYR IVP ×4 (03:37→20:44)
[2022-02-01 07:32] VITALS: BP 136/71; PULSE 87; RESP 18; TEMP 36.9; O2SAT 99
[2022-02-01 07:51] LABS: Magnesium 1.7 mg/dL (1.8-2.4)
[2022-02-01] MEDS: Fluconazole 100 MG TAB 200 MG PO (09:03)
[2022-02-01] MEDS: Pantoprazole 40 MG TABCR PO ×2 (09:03→20:43)
[2022-02-01] MEDS: levoFLOXacin 250 MG TAB 750 MG PO (09:03)
[2022-02-01] MEDS: Cholecalciferol (Vitamin D3) 1,000 UNIT TAB 1000 UNITS PO (09:03)
[2022-02-01] MEDS: Acyclovir 400 MG TAB PO ×2 (09:03→20:43)
[2022-02-01 11:00] LABS: Abs Immature Grans 0.01 10^3/uL (0.0-0.06); Absolute Basophil Count 0.01 10^3/uL (0.0-0.2); Absolute Eosinophil Count 0.04 10^3/uL (0.0-0.7); Absolute Monocyte Count 0.13 10^3/uL (0.1-0.8); HCT 23.8 % (40.0-50.0); HGB 8.3 g/dL (13.5-17.5); MCH 32.5 pg (27.0-33.0); MCHC 34.9 % (32.0-36.0); MCV 93 fL (80-95); MPV 10.2 fL (8.0-11.0); Platelet Count 102 10^3/uL (130-400); RBC 2.55 10^6/uL (4.36-5.78); RDW 20.2 % (11.8-14.1); RDW-SD 63.3 fL
[2022-02-01 11:14] LABS: Absolute Neutrophil Count 0.12 10^3/uL (1.2-6.7)
[2022-02-01 11:15] LABS: Anisocytosis 2+; Diff Comment Manual Differential
[2022-02-01] MEDS: Dronabinol 2.5 MG CAP PO ×2 (11:50→18:08)
[2022-02-01] MEDS: Magnesium Oxide 400 MG TAB 800 MG PO ×2 (11:50→20:43)
--- NOTE | 2022-02-01 13:15 | PDOC.CMDIS ---
- If Service Date Differs Date of service: 02/01/22 Time of Service: 13:15 LACE Index Scoring Tool - Questions: Length of Stay (in days): 2 Acuity (Admit via E.D.?): Yes Comorbidities: Any Tumor E.D. Visits: 2 - Answers: Total Score: 9 Risk of Readmission: Low Risk Care Management Discharge Reason for Hospitalization: Neutropenic fever, COVID Discharge Plan: Layton will return home when ready per MD. He will follow up with his PCP, Oncologist and plan of care as prescribed. He will transport via private vehicle with family or via RCT. Patient/Family Education Needs: Review discharge instructions, discuss Ask Me Three.
[2022-02-01] MEDS: REMDESIVIR 100 MG in Normal Saline 250 ML 250 MG IVPB (14:04)
[2022-02-01 14:26] VITALS: BP 124/73; PULSE 84; RESP 18; TEMP 36.4; O2SAT 94
--- NOTE | 2022-02-01 16:50 | PGE_ITS ---
Date of Service Date of service: 02/01/22 Time of Service: 16:51 Assessment and Plan Assessment and plan (1) Neutropenia: Status: Acute Assessment and plan: Secondary to his 3rd cycle of R-CHOP on 01/23/22. Not hospitalized with the previous 2 cycles. He endorsed to hospitalist that he had no fever at home but was having chills. Cont cefepime, levaquin, diflucan and acyclovir. MRSA screen Was negative. Monitor daily CBC. continue airborne precautions. So far blood cultures no growth x 48 hr sputum culture was not sent on admission, I have ordered one since he is cough ing purulent sputum Professional time spent interviewing and examining patient, discussion of goals of care with hospital team (care management, nursing and consulting professionals) was 15 minutes. (2) COVID: Status: Acute Assessment and plan: No pulmonary findings on imaging. He has endorsed a cough with sputum. On cefepime. Procalcitonin 0.1, Remdesivir treatment initiated d/t his risk of worsening Covid. Not requiring steroids as he has no incr. oxygen needs. Day #3 of 5 Remdesivir (3) B-cell lymphoma of extranodal site: Status: Acute Assessment and plan: S/P 3 cycles of R-CHOP. Imaging today shows a new scapular lesion and a new pulmonary lesion that are suspicious for mets. (4) COPD (chronic obstructive pulmonary disease): Status: Chronic Assessment and plan: No exacerbation. PRN albuterol available. (5) Discharge planning issues: Status: Acute Assessment and plan: DNR/DNI Likely will d/c to home w/o services. Subjective Subjective Interval history since last seen: No new complaints. He is coughing up some yellowish sputum. He remains afebrile. Last temperature spike was on 01/30/2022 with a temperature of 38. He remains on cefepime along with Levaquin. He is also on Diflucan and acyclovir prophylactically.I did not have a chance to call Dr. Palafox's office to discuss his recent CT findings that showed left scapular metastatic disease as well as a right lung nodule. Try to call her office tomorrow discuss his case with her and make sure she is aware of his CT findings. He reportedly had a recent PET scan performed at [facility]. Exam Narrative Exam Narrative: Layton is alert sitting up in bed watching TV awaiting his dinner. He is in no acute respiratory distress not requiring any supplemental oxygen. Lungs are clear anteriorly posterior he has some fine bibasilar rales no rhonchi or wheezes Heart regular rate and rhythm Extremities without cyanosis or edema Abdomen soft nontender Objective Last Vital Signs Temp 36.4 C L 02/01/22 14:26 Pulse 84 02/01/22 14:26 Resp 18 02/01/22 14:26 BP 124/73 02/01/22 14:26 Pulse Ox 94 02/01/22 14:26 Laboratory Results - last 24 hr 02/01/22 02/01/22 05:30 05:30 WBC 0.50 L* RBC 2.55 L Hgb 8.3 L Hct 23.8 L MCV 93 MCH 32.5 MCHC 34.9 RDW 20.2 H Plt Count 102 L MPV 10.2 Immature Gran % 2.0 Neutrophils % 24.0 Lymphocytes % 40.0 Monocytes % 26.0 Eosinophils % 8.0 Basophils % 2.0 Nucleated RBC % 0.0 Absolute Neutrophils 0.12 L* Absolute Lymphocytes 0.20 L Absolute Monocytes 0.13 Absolute Eosinophils 0.04 Absolute Basophils 0.01 RBC Morphology See Below Anisocytosis 2+ Magnesium 1.7 L
[2022-02-01] MEDS: Latanoprost 0.005% 2.5 ML BTL OP (20:44)
[2022-02-01 21:00] VITALS: BP 108/62; PULSE 87; RESP 16; TEMP 37.1; O2SAT 97
[2022-02-02] MEDS: Heparin 5,000 UNITS/ML VIAL 5000 UNITS SC ×3 (03:10→17:16)
[2022-02-02] MEDS: CEFEPIME 2 GM in Normal Saline 100 ML IVPB ×3 (03:10→20:53)
[2022-02-02] MEDS: Pantoprazole 40 MG TABCR PO ×2 (05:48→20:52)
[2022-02-02 07:18] LABS: Abs Immature Grans 0.04 10^3/uL (0.0-0.06); Absolute Basophil Count 0.02 10^3/uL (0.0-0.2); Absolute Eosinophil Count 0.04 10^3/uL (0.0-0.7); Absolute Lymphocyte Count 0.33 10^3/uL (1.2-3.4); Absolute Monocyte Count 0.29 10^3/uL (0.1-0.8); Basophils % 1.9; Eosinophils % 3.8; HGB 9.1 g/dL (13.5-17.5); Immature Grans % 3.8; Lymphocytes % 31.7; MCH 33.2 pg (27.0-33.0); MCHC 36.4 % (32.0-36.0); MCV 91 fL (80-95); MPV 10.4 fL (8.0-11.0); Monocytes % 27.9; Platelet Count 120 10^3/uL (130-400); RBC 2.74 10^6/uL (4.36-5.78); RDW 20.6 % (11.8-14.1); RDW-SD 62.3 fL
[2022-02-02 08:03] VITALS: BP 132/79; PULSE 87; RESP 16; TEMP 36; O2SAT 99
[2022-02-02 08:13] LABS: Neutrophils % 30.9
[2022-02-02 08:14] LABS: Absolute Neutrophil Count 0.32 10^3/uL (1.2-6.7); Anisocytosis 2+; Diff Comment Agrees w/ Instrument; WBC 1.04 10^3/uL (4.4-10.8)
[2022-02-02 08:25] LABS: D-Dimer 226 ng/mlFEU (<500)
[2022-02-02] MEDS: Cholecalciferol (Vitamin D3) 1,000 UNIT TAB 1000 UNITS PO (08:32)
[2022-02-02] MEDS: Fluconazole 100 MG TAB 200 MG PO (08:33)
[2022-02-02] MEDS: levoFLOXacin 250 MG TAB 750 MG PO (08:33)
[2022-02-02] MEDS: Acyclovir 400 MG TAB PO ×2 (08:33→20:52)
[2022-02-02 08:48] LABS: Procalcitonin < 0.1 ng/mL
[2022-02-02 08:53] LABS: ALT 17 U/L (16-63); AST 17 U/L (15-37); Albumin 3.4 g/dL (3.4-5.0); Alkaline Phosphatase 96 U/L (46-116); Anion Gap 7.1 mmol/L (3-11); BUN 28 mg/dL (7-18); Bilirubin, Total 0.2 mg/dL (0.2-1.0); CO2 26.9 mmol/L (21.0-32.0); CREATININE 1.1 mg/dL (0.70-1.30); Calcium 8.6 mg/dL (8.5-10.1); Chloride 106 mmol/L (98-107); Estimated GFR 72.67 (mL/min/1.73m2); Glucose 91 mg/dL (74-106); LDH 115 U/L (85-227); Potassium 4.2 mmol/L (3.5-5.1); Sodium 140 mmol/L (136-145); Total Protein 6.2 g/dL (6.4-8.2)
[2022-02-02] MEDS: Dronabinol 2.5 MG CAP PO ×2 (10:50→17:15)
[2022-02-02] MEDS: Magnesium Oxide 400 MG TAB 800 MG PO ×2 (10:50→20:52)
[2022-02-02] MEDS: REMDESIVIR 100 MG in Normal Saline 250 ML 250 MG IVPB (11:39)
--- NOTE | 2022-02-02 13:36 | PGE_ITS ---
Date of Service Date of service: 02/02/22 Time of Service: 13:36 Assessment and Plan Assessment and plan (1) Neutropenia: Status: Acute Assessment and plan: Secondary to his 3rd cycle of R-CHOP on 01/23/22. Not hospitalized with the previous 2 cycles. He endorsed to hospitalist that he had no fever at home but was having chills. Cont cefepime, levaquin, diflucan and acyclovir. MRSA screen Was negative. Monitor daily CBC. continue airborne precautions. So far blood cultures no growth x 72 hr sputum culture was not sent on admission, I have ordered one since he is cough ing purulent sputum Total white count up to 1000 and ANC is up to 320 Professional time spent interviewing and examining patient, discussion of goals of care with hospital team (care management, nursing and consulting professionals) was 15 minutes. (2) COVID: Status: Acute Assessment and plan: No pulmonary findings on imaging. He has endorsed a cough with sputum. On cefepime. Procalcitonin 0.1, Remdesivir treatment initiated d/t his risk of worsening Covid. Not requiring steroids as he has no incr. oxygen needs. Day #4 of 5 Remdesivir (3) B-cell lymphoma of extranodal site: Status: Acute Assessment and plan: S/P 3 cycles of R-CHOP. Imaging today shows a new scapular lesion and a new pulmonary lesion that are suspicious for mets. (4) COPD (chronic obstructive pulmonary disease): Status: Chronic Assessment and plan: No exacerbation. PRN albuterol available. (5) Discharge planning issues: Status: Acute Assessment and plan: DNR/DNI Likely will d/c to home w/o services. Subjective Subjective Interval history since last seen: Erich is doing well he is afebrile denies any shortness of breath or chest pain. Today is day #4 of 5 days of Remdesivir. Oxygen saturations 99% on room air. CMP is within normal. His CRP down to 0.8. D-dimer is down to 226. His total white count and ANC is coming up. Total WBC is 1000 whereas his ANC is now 320. I told Erich that he could go home tomorrow after his completion of his Remdesivir. Exam Narrative Exam Narrative: Alert and oriented to person place time circumstance able to talk in complete paragraphs Lungs are clear to auscultation Heart is regular rate and rhythm Abdomen soft and nontender Extremities without peripheral cyanosis or edema Objective Last Vital Signs Temp 36.0 C L 02/02/22 08:03 Pulse 87 02/02/22 08:03 Resp 16 02/02/22 08:03 BP 132/79 02/02/22 08:03 Pulse Ox 99 02/02/22 08:03 Laboratory Results - last 24 hr 02/02/22 02/02/22 02/02/22 06:00 06:00 06:00 WBC 1.04 L* RBC 2.74 L Hgb 9.1 L Hct 25.0 L MCV 91 MCH 33.2 H MCHC 36.4 H RDW 20.6 H Plt Count 120 L MPV 10.4 Immature Gran % 3.8 Neutrophils % 30.9 Lymphocytes % 31.7 Monocytes % 27.9 Eosinophils % 3.8 Basophils % 1.9 Nucleated RBC % 0.0 Absolute Neutrophils 0.32 L* Absolute Lymphocytes 0.33 L Absolute Monocytes 0.29 Absolute Eosinophils 0.04 Absolute Basophils 0.02 RBC Morphology See Below Anisocytosis 2+ D-Dimer Sodium 140 Potassium 4.2 Chloride 106 Carbon Dioxide 26.9 Anion Gap 7.1 BUN 28 H Creatinine 1.1 Est GFR (CKD-EPI 2020) 72.67 Glucose 91 Calcium 8.6 Total Bilirubin 0.2 AST 17 ALT 17 Alkaline Phosphatase 96 Lactate Dehydrogenase 115 C-Reactive Protein 0.80 H Total Protein 6.2 L Albumin 3.4 Procalcitonin < 0.1 02/02/22 06:00 WBC RBC Hgb Hct MCV MCH MCHC RDW Plt Count MPV Immature Gran % Neutrophils % Lymphocytes % Monocytes % Eosinophils % Basophils % Nucleated RBC % Absolute Neutrophils Absolute Lymphocytes Absolute Monocytes Absolute Eosinophils Absolute Basophils RBC Morphology Anisocytosis D-Dimer 226 Sodium Potassium Chloride Carbon Dioxide Anion Gap BUN Creatinine Est GFR (CKD-EPI 2020) Glucose Calcium Total Bilirubin AST ALT Alkaline Phosphatase Lactate Dehydrogenase C-Reactive Protein Total Protein Albumin Procalcitonin
[2022-02-02 15:50] VITALS: BP 153/56; PULSE 90; RESP 18; TEMP 36.5; O2SAT 100
[2022-02-02] MEDS: Normal Saline Flush 10 ML SYR IVP (20:53)
[2022-02-02] MEDS: Latanoprost 0.005% 2.5 ML BTL OP (20:54)
[2022-02-02 21:08] VITALS: BP 129/72; PULSE 83; RESP 16; TEMP 36.8; O2SAT 99
[2022-02-03] MEDS: Heparin 5,000 UNITS/ML VIAL 5000 UNITS SC ×2 (02:58→11:15)
[2022-02-03] MEDS: CEFEPIME 2 GM in Normal Saline 100 ML IVPB (02:58)
[2022-02-03] MEDS: Pantoprazole 40 MG TABCR PO (05:36)
[2022-02-03 06:52] LABS: HCT 25.3 % (40.0-50.0); HGB 8.8 g/dL (13.5-17.5); MCH 31.5 pg (27.0-33.0); MCHC 34.8 % (32.0-36.0); MCV 91 fL (80-95); MPV 10.3 fL (8.0-11.0); Platelet Count 127 10^3/uL (130-400); RBC 2.79 10^6/uL (4.36-5.78); RDW 19.6 % (11.8-14.1); RDW-SD 62.5 fL; WBC 2.13 10^3/uL (4.4-10.8)
[2022-02-03 07:15] LABS: Absolute Basophil Count 0.13 10^3/uL (0.0-0.2); Absolute Eosinophil Count 0.02 10^3/uL (0.0-0.7); Absolute Lymphocyte Count 0.32 10^3/uL (1.2-3.4); Absolute Monocyte Count 0.32 10^3/uL (0.1-0.8); Absolute Neutrophil Count 1.34 10^3/uL (1.2-6.7); Atypical Lymphocytes % 2; Bands % 4; Diff Comment Manual Differential; RBC Morphology Normal
[2022-02-03 07:45] VITALS: BP 137/76; PULSE 89; RESP 18; TEMP 36.5; O2SAT 99
[2022-02-03] MEDS: Magnesium Oxide 400 MG TAB 800 MG PO (09:20)
[2022-02-03] MEDS: Cholecalciferol (Vitamin D3) 1,000 UNIT TAB 1000 UNITS PO (09:20)
[2022-02-03] MEDS: REMDESIVIR 100 MG in Normal Saline 250 ML 250 MG IVPB (09:20)
[2022-02-03] MEDS: Acyclovir 400 MG TAB PO (09:20)
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
[2022-02-03] MEDS: Dronabinol 2.5 MG CAP PO (11:15)
--- NOTE | 2022-02-03 15:51 | PDOC.CMDIS ---
- If Service Date Differs Date of service: 02/03/22 Time of Service: 15:51 LACE Index Scoring Tool - Questions: Length of Stay (in days): 4 - 6 Acuity (Admit via E.D.?): Yes Comorbidities: Chronic Pulmonary Disease, Metastatic Solid Tumor E.D. Visits: 2 - Answers: Total Score: 14 Risk of Readmission: High Risk Care Management Discharge Reason for Hospitalization: Neutropenic fever, COVID Discharge Plan: Layton will return home today with no new services. He will be driven home via private vehicle by family. He will follow up with his PCP and discharge plan of care. Patient/Family Education Needs: Review discharge instructions and limitations, discussion of self care needs including ask me three.
[2022-02-03] MEDS: Normal Saline Flush 10 ML SYR IVP (16:09)
[2022-02-03] MEDS: Heparin 500 UNITS/5 ML SYRINGE IVP (16:10)
[2022-02-03 20:52] LABS: Legionella Ag Detection Urine Negative (Negative)
[2022-02-05 13:57] LABS: Streptococcus Pneumoniae Ag, U Negative (Negative)
[2022-02-06 17:12] LABS: Mycoplasma Pneumoniae PCR Negative; Specimen source sputum
== END 2022-02-03 16:20 | disposition home or self-care (01) | DRG 808 ==
LOC: ER 13:17 → ICU 17:05 → MS 19:56 → ICU 02-01 12:56 → MS 02-01 12:57
PROVIDERS: Internal Medicine; Admitting Provider Family Medicine; Emergency Provider Nurse Practitioner Family; PCP Internal Medicine; Visit Provider Family Medicine
DX: D70.1 Agranulocytosis secondary to cancer chemotherapy (principal); U07.1 COVID-19; C83.39 Diffuse large B-cell lymphoma, extranodal and solid organ sites; C79.51 Secondary malignant neoplasm of bone; C78.01 Secondary malignant neoplasm of right lung; R59.1 Generalized enlarged lymph nodes; R16.1 Splenomegaly, not elsewhere classified; N40.0 Benign prostatic hyperplasia without lower urinary tract symptoms; J44.9 Chronic obstructive pulmonary disease, unspecified; I10 Essential (primary) hypertension; K21.9 Gastro-esophageal reflux disease without esophagitis; N28.89 Other specified disorders of kidney and ureter; J32.2 Chronic ethmoidal sinusitis; T45.1X5A Adverse effect of antineoplastic and immunosuppressive drugs, initial encounter; R50.81 Fever presenting with conditions classified elsewhere
CPT/HCPCS: 36415; 71250; 80053; 84145; 87040; 87081; 87449; 87637; 96361; 96365; 96367; 99285; 70487; 81003; 83605; 83615; 83735; 85025; 85379; 86140; 87070; 87086; 87205; 87581; 87899; 99223; 99231; 99232; 99238; 99284; J0248; J1644

== ENCOUNTER 2022-02-13 01:34 | Outpatient (RCR) | payer MEDICARE, SELFPAY ==
[2022-02-13] MEDS: Normal Saline Flush 10 ML SYR IVP (08:33)
[2022-02-13] MEDS: Heparin 500 UNITS/5 ML SYRINGE IV (08:34)
[2022-02-13 08:44] LABS: Abs Immature Grans 0.19 10^3/uL (0.0-0.06); Absolute Basophil Count 0.04 10^3/uL (0.0-0.2); Absolute Eosinophil Count 0.04 10^3/uL (0.0-0.7); Absolute Neutrophil Count 3.48 10^3/uL (1.2-6.7); Basophils % 0.8; Eosinophils % 0.8; HCT 27.6 % (40.0-50.0); HGB 9.5 g/dL (13.5-17.5); Immature Grans % 3.8; Lymphocytes % 8.1; MCH 31.8 pg (27.0-33.0); MCHC 34.4 % (32.0-36.0); MCV 92 fL (80-95); MPV 9.1 fL (8.0-11.0); Monocytes % 16.2; Neutrophils % 70.3; Platelet Count 204 10^3/uL (130-400); RBC 2.99 10^6/uL (4.36-5.78); RDW 19.3 % (11.8-14.1); RDW-SD 64.4 fL; WBC 4.95 10^3/uL (4.4-10.8)
[2022-02-13 09:03] LABS: ALT 17 U/L (16-63); AST 18 U/L (15-37); Albumin 3.5 g/dL (3.4-5.0); Alkaline Phosphatase 101 U/L (46-116); Anion Gap 7.5 mmol/L (3-11); BUN 26 mg/dL (7-18); Bilirubin, Total 0.3 mg/dL (0.2-1.0); CO2 28.5 mmol/L (21.0-32.0); CREATININE 1.4 mg/dL (0.70-1.30); Calcium 8.5 mg/dL (8.5-10.1); Chloride 107 mmol/L (98-107); Estimated GFR 54.41 (mL/min/1.73m2); Glucose 111 mg/dL (74-106); LDH 134 U/L (85-227); Potassium 4.3 mmol/L (3.5-5.1); Sodium 143 mmol/L (136-145); Total Protein 6.3 g/dL (6.4-8.2); Uric Acid 4.5 mg/dL (3.5-7.2)
== END 2022-02-23 23:59 | disposition home or self-care (01) ==
LOC: INF 01:34
PROVIDERS: PCP Nurse Practitioner Family; Visit Provider Internal Medicine Hematology & Oncology
DX: C83.38 Diffuse large B-cell lymphoma, lymph nodes of multiple sites (principal); Z45.2 Encounter for adjustment and management of vascular access device
CPT/HCPCS: 36591; 80053; 86900; 86901; 83615; 84550; 85025

== ENCOUNTER 2022-03-13 01:56 | Outpatient (RCR) | payer MEDICARE, SELFPAY ==
[2022-03-13] MEDS: Normal Saline Flush 10 ML SYR IVP (08:01)
[2022-03-13 08:18] LABS: Abs Immature Grans 0.05 10^3/uL (0.0-0.06); Absolute Basophil Count 0.05 10^3/uL (0.0-0.2); Absolute Eosinophil Count 0.03 10^3/uL (0.0-0.7); Absolute Lymphocyte Count 0.51 10^3/uL (1.2-3.4); Absolute Monocyte Count 1.02 10^3/uL (0.1-0.8); Absolute Neutrophil Count 3.42 10^3/uL (1.2-6.7); Eosinophils % 0.6; HCT 27.9 % (40.0-50.0); HGB 9.8 g/dL (13.5-17.5); MCH 33.2 pg (27.0-33.0); MCHC 35.1 % (32.0-36.0); MCV 95 fL (80-95); MPV 8.6 fL (8.0-11.0); Monocytes % 20.1; Neutrophils % 67.3; Platelet Count 207 10^3/uL (130-400); RBC 2.95 10^6/uL (4.36-5.78); RDW 15.9 % (11.8-14.1); RDW-SD 54.4 fL; WBC 5.08 10^3/uL (4.4-10.8)
[2022-03-13 08:33] LABS: ALT 25 U/L (16-63); AST 20 U/L (15-37); Albumin 3.6 g/dL (3.4-5.0); Alkaline Phosphatase 84 U/L (46-116); BUN 28 mg/dL (7-18); Bilirubin, Total 0.3 mg/dL (0.2-1.0); CREATININE 1.3 mg/dL (0.70-1.30); Calcium 8.7 mg/dL (8.5-10.1); Chloride 105 mmol/L (98-107); Estimated GFR 59.47 (mL/min/1.73m2); Glucose 100 mg/dL (74-106); LDH 130 U/L (85-227); Potassium 4.1 mmol/L (3.5-5.1); Sodium 130 mmol/L (136-145); Total Protein 6.4 g/dL (6.4-8.2); Uric Acid 5.5 mg/dL (3.5-7.2)
== END 2022-03-26 23:59 | disposition home or self-care (01) ==
LOC: INF 01:56
PROVIDERS: PCP Nurse Practitioner Family; Visit Provider Internal Medicine Hematology & Oncology
DX: C83.38 Diffuse large B-cell lymphoma, lymph nodes of multiple sites (principal); Z45.2 Encounter for adjustment and management of vascular access device
CPT/HCPCS: 36591; 80053; 83615; 84550; 85025

== ENCOUNTER 2022-04-03 03:39 | Outpatient (RCR) | payer MEDICARE, SELFPAY ==
[2022-04-03] MEDS: Normal Saline Flush 10 ML SYR IVP (08:09)
[2022-04-03 08:19] LABS: Abs Immature Grans 0.07 10^3/uL (0.0-0.06); Absolute Basophil Count 0.06 10^3/uL (0.0-0.2); Absolute Eosinophil Count 0.09 10^3/uL (0.0-0.7); Absolute Lymphocyte Count 0.46 10^3/uL (1.2-3.4); Absolute Monocyte Count 0.92 10^3/uL (0.1-0.8); Absolute Neutrophil Count 4.07 10^3/uL (1.2-6.7); Basophils % 1.1; Eosinophils % 1.6; HCT 29.6 % (40.0-50.0); HGB 10.6 g/dL (13.5-17.5); Immature Grans % 1.2; Lymphocytes % 8.1; MCH 32.8 pg (27.0-33.0); MCHC 35.8 % (32.0-36.0); MCV 92 fL (80-95); Monocytes % 16.2; Neutrophils % 71.8; Platelet Count 242 10^3/uL (130-400); RBC 3.23 10^6/uL (4.36-5.78); RDW 15.2 % (11.8-14.1); WBC 5.67 10^3/uL (4.4-10.8)
[2022-04-03 08:38] LABS: ALT 23 U/L (16-63); AST 19 U/L (15-37); Albumin 3.8 g/dL (3.4-5.0); Alkaline Phosphatase 102 U/L (46-116); Anion Gap 7.2 mmol/L (3-11); BUN 24 mg/dL (7-18); Bilirubin, Total 0.3 mg/dL (0.2-1.0); CO2 27.8 mmol/L (21.0-32.0); CREATININE 1.1 mg/dL (0.70-1.30); Calcium 8.9 mg/dL (8.5-10.1); Chloride 107 mmol/L (98-107); Estimated GFR 72.22 (mL/min/1.73m2); Glucose 114 mg/dL (74-106); LDH 160 U/L (85-227); Sodium 142 mmol/L (136-145); Total Protein 6.7 g/dL (6.4-8.2); Uric Acid 4.9 mg/dL (3.5-7.2)
== END 2022-04-23 23:59 | disposition home or self-care (01) ==
LOC: INF 03:39
PROVIDERS: PCP Nurse Practitioner Family; Visit Provider Internal Medicine Hematology & Oncology
DX: C83.38 Diffuse large B-cell lymphoma, lymph nodes of multiple sites (principal); Z45.2 Encounter for adjustment and management of vascular access device
CPT/HCPCS: 36591; 80053; 83615; 84550; 85025

== ENCOUNTER → 2022-06-03 09:26 | Outpatient (BNVA) | payer MEDICARE, SELFPAY | PROVIDERS: PCP Nurse Practitioner Family; Referring Provider Nurse Practitioner Family; Visit Provider Surgery | DX: C85.19 Unspecified B-cell lymphoma, extranodal and solid organ sites (principal); R94.8 Abnormal results of function studies of other organs and systems; K21.9 Gastro-esophageal reflux disease without esophagitis | CPT/HCPCS: 99212; 99213 ==

== ENCOUNTER → 2022-06-17 11:35 | Outpatient (BNVA) | payer MEDICARE, SELFPAY | PROVIDERS: PCP Nurse Practitioner Family; Referring Provider Nurse Practitioner Family; Visit Provider Surgery | DX: R22.0 Localized swelling, mass and lump, head (principal); K40.90 Unilateral inguinal hernia, without obstruction or gangrene, not specified as recurrent; K21.9 Gastro-esophageal reflux disease without esophagitis; C85.19 Unspecified B-cell lymphoma, extranodal and solid organ sites | CPT/HCPCS: 11421; 99213 ==

== ENCOUNTER 2022-06-17 11:59 | Outpatient (REF) | payer MEDICARE, SELFPAY ==
--- NOTE | 2022-06-17 12:00 | SKI_PTH ---
PATIENT: Layton Fuller LOC: [facility] U#:[id number] AGE/SX: 72/M ROOM: RE06/17/[address]: Pauline Becerra : 1950 BED: DIS: 06/17/2022 SPEC #: [id number] RECD: 06/17/22 12:51 STATUS: WIL RENathan #: [id number] ZACH: 06/17/22 12:[address]: Pauline Becerra DEPT: Surgical Specimen RECD BY: Jennifer Mccloud ENTERED: 06/17/22 12:51 SP TYPE: NICOLLE GALVAN DR: Kylah Pedraza Tissues: 1 - SKIN BIOPSY(SHAVE/PUNCH) Procedures: IMMUNOPEROXIDASE STAIN SKIN LEVEL 4 Comments: [id number]
== END 2022-06-17 12:00 | disposition home or self-care (01) ==
LOC: LBN 11:59
PROVIDERS: PCP Nurse Practitioner Family; Visit Provider Surgery
DX: R23.4 Changes in skin texture; L73.8 Other specified follicular disorders; Z85.72 Personal history of non-Hodgkin lymphomas
CPT/HCPCS: 88305; 88361

== ENCOUNTER → 2022-06-28 07:29 | Outpatient (BNVA) | payer MEDICARE, SELFPAY | PROVIDERS: PCP Nurse Practitioner Family; Referring Provider Nurse Practitioner Family; Visit Provider Surgery | DX: Z48.02 Encounter for removal of sutures (principal) ==

== ENCOUNTER 2022-07-03 01:54 | Outpatient (RCR) | payer MEDICARE, SELFPAY ==
[2022-07-03] MEDS: Heparin 500 UNITS/5 ML SYRINGE IV (08:49)
[2022-07-03] MEDS: Normal Saline Flush 10 ML SYR IVP (08:49)
[2022-07-03 09:05] LABS: Abs Immature Grans 0.02 10^3/uL (0.0-0.06); Absolute Basophil Count 0.04 10^3/uL (0.0-0.2); Absolute Eosinophil Count 0.26 10^3/uL (0.0-0.7); Absolute Lymphocyte Count 1.09 10^3/uL (1.2-3.4); Absolute Monocyte Count 0.94 10^3/uL (0.1-0.8); Absolute Neutrophil Count 3.47 10^3/uL (1.2-6.7); Basophils % 0.7; Eosinophils % 4.5; HCT 37.6 % (40.0-50.0); HGB 13.1 g/dL (13.5-17.5); Immature Grans % 0.3; Lymphocytes % 18.7; MCH 29.2 pg (27.0-33.0); MCHC 34.8 % (32.0-36.0); MCV 84 fL (80-95); MPV 8.7 fL (8.0-11.0); Monocytes % 16.2; Neutrophils % 59.6; Platelet Count 201 10^3/uL (130-400); RBC 4.49 10^6/uL (4.36-5.78); RDW 13.1 % (11.8-14.1); RDW-SD 40.3 fL; WBC 5.82 10^3/uL (4.4-10.8)
[2022-07-03 09:34] LABS: ALT 40 U/L (16-63); AST 21 U/L (15-37); Alkaline Phosphatase 120 U/L (46-116); Anion Gap 7.5 mmol/L (3-11); BUN 18 mg/dL (7-18); Bilirubin, Total 0.5 mg/dL (0.2-1.0); CO2 27.5 mmol/L (21.0-32.0); Calcium 9.1 mg/dL (8.5-10.1); Chloride 107 mmol/L (98-107); Estimated GFR 80.97 (mL/min/1.73m2); Glucose 92 mg/dL (74-106); LDH 142 U/L (85-227); Potassium 4.5 mmol/L (3.5-5.1); Sodium 142 mmol/L (136-145); Total Protein 7.1 g/dL (6.4-8.2)
== END 2022-07-24 23:59 | disposition home or self-care (01) ==
LOC: INF 01:54
PROVIDERS: PCP Nurse Practitioner Family; Visit Provider Internal Medicine Hematology & Oncology
DX: C83.38 Diffuse large B-cell lymphoma, lymph nodes of multiple sites (principal); Z45.2 Encounter for adjustment and management of vascular access device
CPT/HCPCS: 36591; 80053; 83615; 85025

== ENCOUNTER 2022-10-23 01:32 | Outpatient (RCR) | payer MEDICARE, SELFPAY ==
[2022-09-25 09:19] LABS: Abs Immature Grans 0.03 10^3/uL (0.0-0.06); Absolute Basophil Count 0.04 10^3/uL (0.0-0.2); Absolute Eosinophil Count 0.18 10^3/uL (0.0-0.7); Absolute Lymphocyte Count 1.48 10^3/uL (1.2-3.4); Absolute Monocyte Count 0.83 10^3/uL (0.1-0.8); Absolute Neutrophil Count 3.45 10^3/uL (1.2-6.7); Basophils % 0.7; HGB 13.9 g/dL (13.5-17.5); Immature Grans % 0.5; Lymphocytes % 24.6; MCH 28.5 pg (27.0-33.0); MCHC 34.8 % (32.0-36.0); MCV 82 fL (80-95); MPV 8.5 fL (8.0-11.0); Monocytes % 13.8; Neutrophils % 57.4; Platelet Count 191 10^3/uL (130-400); RBC 4.87 10^6/uL (4.36-5.78); RDW 14.6 % (11.8-14.1); RDW-SD 42.6 fL; WBC 6.01 10^3/uL (4.4-10.8)
[2022-09-25] MEDS: Normal Saline Flush 10 ML SYR IVP (09:31)
[2022-09-25] MEDS: Heparin 500 UNITS/5 ML SYRINGE IV (09:31)
[2022-09-25 09:36] LABS: ALT 33 U/L (16-63); AST 17 U/L (15-37); Albumin 4.2 g/dL (3.4-5.0); Alkaline Phosphatase 110 U/L (46-116); Anion Gap 6.8 mmol/L (3-11); BUN 27 mg/dL (7-18); Bilirubin, Total 0.5 mg/dL (0.2-1.0); CO2 28.2 mmol/L (21.0-32.0); Chloride 105 mmol/L (98-107); Estimated GFR 80.97 (mL/min/1.73m2); Glucose 88 mg/dL (74-106); LDH 129 U/L (85-227); Potassium 4.2 mmol/L (3.5-5.1); Sodium 140 mmol/L (136-145); Total Protein 7.2 g/dL (6.4-8.2)
[2022-10-23] MEDS: Heparin 500 UNITS/5 ML SYRINGE IV (09:28)
[2022-10-23] MEDS: Normal Saline Flush 10 ML SYR IVP (09:28)
[2022-10-23 10:13] LABS: Abs Immature Grans 0.03 10^3/uL (0.0-0.06); Absolute Basophil Count 0.04 10^3/uL (0.0-0.2); Absolute Eosinophil Count 0.26 10^3/uL (0.0-0.7); Absolute Lymphocyte Count 1.06 10^3/uL (1.2-3.4); Absolute Monocyte Count 1.03 10^3/uL (0.1-0.8); Absolute Neutrophil Count 5.87 10^3/uL (1.2-6.7); Basophils % 0.5; Eosinophils % 3.1; HCT 37.7 % (40.0-50.0); HGB 13.2 g/dL (13.5-17.5); Immature Grans % 0.4; Lymphocytes % 12.8; MCH 29.3 pg (27.0-33.0); MCV 84 fL (80-95); Monocytes % 12.4; Neutrophils % 70.8; Platelet Count 196 10^3/uL (130-400); RBC 4.51 10^6/uL (4.36-5.78); RDW 14.4 % (11.8-14.1); RDW-SD 43.4 fL; WBC 8.29 10^3/uL (4.4-10.8)
[2022-10-23 10:21] LABS: ALT 26 U/L (16-63); AST 17 U/L (15-37); Albumin 4.1 g/dL (3.4-5.0); Alkaline Phosphatase 107 U/L (46-116); Anion Gap 7.6 mmol/L (3-11); BUN 18 mg/dL (7-18); Bilirubin, Total 0.6 mg/dL (0.2-1.0); CO2 28.4 mmol/L (21.0-32.0); Calcium 8.8 mg/dL (8.5-10.1); Chloride 105 mmol/L (98-107); Estimated GFR 80.97 (mL/min/1.73m2); Glucose 90 mg/dL (74-106); LDH 141 U/L (85-227); Potassium 3.8 mmol/L (3.5-5.1); Sodium 141 mmol/L (136-145)
== END 2022-10-24 23:59 | disposition home or self-care (01) ==
LOC: INF 01:32
PROVIDERS: PCP Nurse Practitioner Family; Visit Provider Internal Medicine Hematology & Oncology
DX: C83.38 Diffuse large B-cell lymphoma, lymph nodes of multiple sites (principal); Z45.2 Encounter for adjustment and management of vascular access device
CPT/HCPCS: 36591; 80053; 83615; 85025

== ENCOUNTER → 2022-11-18 13:04 | Outpatient (BNVA) | payer MEDICARE, SELFPAY | PROVIDERS: PCP Nurse Practitioner Family; Referring Provider Nurse Practitioner Family; Visit Provider Surgery | DX: K40.90 Unilateral inguinal hernia, without obstruction or gangrene, not specified as recurrent (principal); K21.9 Gastro-esophageal reflux disease without esophagitis | CPT/HCPCS: 99212; 99213 ==

== ENCOUNTER → 2022-11-20 10:05 | Outpatient (BNVA) | payer MEDICARE, SELFPAY | PROVIDERS: PCP Nurse Practitioner Family; Referring Provider Nurse Practitioner Family; Visit Provider Nurse Practitioner Gerontology | DX: N48.6 Induration penis plastica (principal); I10 Essential (primary) hypertension; J44.9 Chronic obstructive pulmonary disease, unspecified | CPT/HCPCS: 99213 ==

== ENCOUNTER 2022-11-20 12:36 | Outpatient (RCR) | payer MEDICARE, SELFPAY ==
[2022-11-20] MEDS: Heparin 500 UNITS/5 ML SYRINGE IV (11:15)
[2022-11-20] MEDS: Normal Saline Flush 10 ML SYR IVP (11:15)
== END 2022-11-23 23:59 | disposition home or self-care (01) ==
LOC: INF 12:36
PROVIDERS: PCP Nurse Practitioner Family; Visit Provider Internal Medicine Hematology & Oncology
DX: C83.38 Diffuse large B-cell lymphoma, lymph nodes of multiple sites (principal); Z45.2 Encounter for adjustment and management of vascular access device
CPT/HCPCS: 36591

== ENCOUNTER 2022-12-17 06:03 | Day surgery (SDC) | payer MEDICARE, SELFPAY ==
--- NOTE | 2022-12-16 15:59 | W.PM.DSUDISC ---
Discharge Plan Disposition Patient Disposition: Home Condition: Good Discharge Details Reason For Visit: hernia repair Attending Provider: Pauline Becerra Primary Care Provider: Carolyn Pedraza Home Meds and New Rx's Prescriptions: No Action acetaminophen [Tylenol Extra Strength] 500 mg tablet 500 mg PO HS PRN ibuprofen 200 mg capsule 800 mg PO Q6H PRN latanoprost 0.005 % drops 1 drp ophthalmic (eye) HS Patient Comments: INSTILL 1 DROP INTO RIGHT EYE EVERY DAY AT BEDTIME Rx Instructions: RIGHT EYE acyclovir 400 mg tablet 400 mg PO BID Patient Comments: TAKE 1 TABLET BY MOUTH TWICE DAILY dorzolamide-timolol 22.3-6.8 mg/mL drops 1 drp ophthalmic (eye) BID Patient Comments: INSTILL 1 DROP INTO RIGHT EYE TWICE DAILY Rx Instructions: RIGHT EYE Discharge Instructions Additional Instructions: Dr. Becerra HERNIA REPAIR ? POSTOPERATIVE INSTRUCTIONS Patients who have this type of surgery can usually be expected to return to work within two weeks and have minimal amounts of discomfort. ? ACTIVITY: The day of surgery should be spent resting. However, you can be up for short periods of time, I.E., going to the bathroom or kitchen. Avoid lifting or straining. On the day following surgery, you can be up and about as desired. ? LIFTING: Restrict your lifting to no more than five (5) pounds for two weeks after surgery. ??We will decide when you are done with restrictions and when you can return to work, at your follow-up appointment.? No sexual activity for two weeks.? ? DIET: There are no dietary restrictions following surgery. However, you may want to start with small amounts of liquids to avoid nausea the day of surgery. ? INCISION CARE: You will notice purple skin glue closing the incision.? Do not peel this off- it will wear off on its own.? After 24 hours you may shower. The dressing may be replaced for comfort, but is not necessary. ?An ice bag may be applied to the incision for 72 hours following surgery. ? SIGNS OF INFECTION: It is not unusual to have some black and blue discoloration of the skin around the incision, but also scrotum and penis.? ?It will slowly disappear. If you have any increased redness, drainage, fever (above 100 degrees), please contact your doctor for an examination. ? DISCOMFORT: You may expect to have some mild discomfort at the incision sight. If severe pain develops you should contact your doctor for further instructions. ? URINATION: Patients who have surgery occasionally have problems urinating. If you experience problems and are not able to urinate within 6 hours following your surgery, please call your doctor immediately or go to your nearest Emergency Room for evaluation. ? DRIVING: NO driving for three (3) days after surgery, or if you are still taking narcotic pain medication.? ? MEDICATIONS: Alternate Tylenol 1000mg by mouth every 8 hours and Ibuprofen 600mg every 6 hours. ?Make sure you take ibuprofen with food and not on an empty stomach. ?Take the Tylenol and ibuprofen continuously for the first 72hrs- not just when you have pain.? Use the tramadol for breakthrough pain/pain >7.? Use ICE!?? Twenty minutes on, and then off, continuously for the first 72hours. If you are taking narcotic pain medication, follow the instructions on the label and do not drive. Pain medications can make you very constipated. Make sure you are moving your bowels daily. If not, take Miralax or Milk of Magnesia.?? Anesthesia makes you very constipated.? Take a dose of milk of magnesia the morning after surgery. ? REPORT: Unusual swelling, severe pain, unresolved nausea, signs of infection, or difficulty in urination to your surgeon. Follow up in clinic with Dr. Becerra in 2 weeks.? [phone] Activity:: see above Remove Dressings/Wound Care:: 24 hours Shower/Bathe:: 24 hours Diet:: As Tolerated Discharge Orders Discharge Orders: Discharge Order (Routine); Ordered 12/17/22 Ordered By: Pauline Becerra DS: Diagnosis Discharge Diagnosis (1) Glaucoma: Status: Chronic (2) Hypoparathyroidism: Status: Acute (3) Right inguinal hernia: Status: Acute Asessment and Plan: The patient is doing well post-op from their [] surgery.? They are having no nausea or vomiting. They are tolerating liquids and a snack. The pt is not having any chest pain or SOB.? Their pain is adequately controlled. They have been able to urinate.? ?HEENT:? no eye pain/drainage/redness/swelling. Mild sore throat ?Cardio- NSR, no chest pain, BP stable- see VS record ?Pulm: no sob or productive cough. No hemoptysis ?Incision- dressing is c/d/i w/ no excessive bleeding or drainage ?I discussed with the patient the findings at the time of surgery and the patient?s progress. ?We reviewed expectations at home; what the patient could expect for recovery time, and in the post-operative period.? We discussed the importance of walking to avoid blood clots and pneumonia.? We discussed and reviewed the patient's post-operative wound care and dressing needs.?? We reviewed their step-paul pain management plan, Rx called to the pharmacy of their choice.? We reviewed activity and limitations-see discharge instructions. We reviewed warning signs, and when to seek medical attention- see d/c instructions.?? Patient was given a postoperative follow-up appointment. Patient verbalized understanding of their postoperative instructions, how do to take care of themselves and their incision, and the pain management plan. Please see discharge instructions.? (4) Benign prostatic hyperplasia: Status: Chronic (5) COPD (chronic obstructive pulmonary disease): Status: Chronic (6) Hypertension: Status: Chronic (7) Lymphoma:
--- NOTE | 2022-12-16 16:40 | W.PM.OP ---
Operative Note Operative Note PRE-OP DIAGNOSIS: Right inguinal hernia PROCEDURE: Open right inguinal hernia surgery with mesh SURGEON: Pauline Becerra ASSISTANT LABORATORY DIRECTOR: Teresa Anderson ANESTHESIA TYPE: Local By Surgeon, General LMA/ETT and Primary Nerve Block Refer to Anesthesia Record COMPLICATIONS: None Patient was transported to: PACU Patient's condition: stable
[2022-12-17 06:34] VITALS: BP 133/75; PULSE 78; RESP 18; TEMP 36.4; O2SAT 98
== END 2022-12-17 06:04 | disposition home or self-care (01) ==
LOC: SUR 06:04
PROVIDERS: PCP Nurse Practitioner Family; Visit Provider Surgery
DX: Z53.09 Procedure and treatment not carried out because of other contraindication (principal)

== ENCOUNTER 2023-01-07 06:17 | Day surgery (SDC) | payer MEDICARE, SELFPAY ==
--- NOTE | 2023-01-06 17:00 | PDOC.DSDIS_ITS ---
Date of service: 01/07/23 Time of Service: 09:11 Discharge Plan Disposition Patient Disposition: Home Condition: Good Discharge Details Reason For Visit: hernia repair Attending Provider: Pauline Becerra Primary Care Provider: Carolyn Pedraza Home Meds and New Rx's Prescriptions: New tramadol 50 mg tablet 50 mg PO Q4H PRNQty: 14 0RF Continued acetaminophen [Tylenol Extra Strength] 500 mg tablet 1,500 mg PO HS PRN ibuprofen 200 mg capsule 800 mg PO Q6H PRN latanoprost 0.005 % drops 1 drp ophthalmic (eye) HS Patient Comments: INSTILL 1 DROP INTO RIGHT EYE EVERY DAY AT BEDTIME Rx Instructions: RIGHT EYE acyclovir 400 mg tablet 400 mg PO BID Patient Comments: TAKE 1 TABLET BY MOUTH TWICE DAILY 01/07 Pt denies using this medication dorzolamide-timolol 22.3-6.8 mg/mL drops 1 drp ophthalmic (eye) BID Patient Comments: INSTILL 1 DROP INTO RIGHT EYE TWICE DAILY Rx Instructions: RIGHT EYE omeprazole magnesium [Prilosec OTC] 20 mg tablet,delayed release (DR/EC) 20 mg PO DAILY PRN Discharge Instructions Additional Instructions: Dr. Becerra HERNIA REPAIR ? POSTOPERATIVE INSTRUCTIONS Patients who have this type of surgery can usually be expected to return to work within two weeks and have minimal amounts of discomfort. ? ACTIVITY: The day of surgery should be spent resting. However, you can be up for short periods of time, I.E., going to the bathroom or kitchen. Avoid lifting or straining. On the day following surgery, you can be up and about as desired. ? LIFTING: Restrict your lifting to no more than five (5) pounds for two weeks after surgery. ??We will decide when you are done with restrictions and when you can return to work, at your follow-up appointment.? No sexual activity for two weeks.? ? DIET: There are no dietary restrictions following surgery. However, you may want to start with small amounts of liquids to avoid nausea the day of surgery. ? INCISION CARE: You will notice purple skin glue closing the incision.? Do not peel this off- it will wear off on its own.? After 24 hours you may shower. The dressing may be replaced for comfort, but is not necessary. ?An ice bag may be applied to the incision for 72 hours following surgery. ? SIGNS OF INFECTION: It is not unusual to have some black and blue discoloration of the skin around the incision, but also scrotum and penis.? ?It will slowly disappear. If you have any increased redness, drainage, fever (above 100 degrees), please contact your doctor for an examination. ? DISCOMFORT: You may expect to have some mild discomfort at the incision sight. If severe pain develops you should contact your doctor for further instructions. ? URINATION: Patients who have surgery occasionally have problems urinating. If you experience problems and are not able to urinate within 6 hours following your surgery, please call your doctor immediately or go to your nearest Emergency Room for evaluation. ? DRIVING: NO driving for three (3) days after surgery, or if you are still taking narcotic pain medication.? ? MEDICATIONS: Alternate Tylenol 1000mg by mouth every 8 hours and Ibuprofen 600mg every 6 hours. ?Make sure you take ibuprofen with food and not on an empty stomach. ?Take the Tylenol and ibuprofen continuously for the first 72hrs- not just when you have pain.? Use the tramadol for breakthrough pain/pain >7.? Use ICE!?? Twenty minutes on, and then off, continuously for the first 72hours. If you are taking narcotic pain medication, follow the instructions on the label and do not drive. Pain medications can make you very constipated. Make sure you are moving your bowels daily. If not, take Miralax or Milk of Magnesia.?? Anesthesia makes you very constipated.? Take a dose of milk of magnesia the morning after surgery. ? REPORT: Unusual swelling, severe pain, unresolved nausea, signs of infection, or difficulty in urination to your surgeon. Follow up in clinic with Dr. Becerra in 2 weeks.? [phone] Activity:: see above Shower/Bathe:: 24 hours Diet:: As Tolerated Discharge Orders Discharge Orders: Discharge Order (Routine); Ordered 01/07/23 Ordered By: Pauline Becerra DS: Diagnosis Discharge Diagnosis (1) Right inguinal hernia: Status: Acute Asessment and Plan: The patient is doing well post-op from their open right inguinal hernia repair with mesh.? They are having no nausea or vomiting. They are tolerating liquids and a snack. The pt is not having any chest pain or SOB.? Their pain is adequa tely controlled. They have been able to urinate.? ?HEENT:? no eye pain/drainage/redness/swelling. Mild sore throat ?Cardio- NSR, no chest pain, BP stable- see VS record ?Pulm: no sob or productive cough. No hemoptysis ?Incision- dressing is c/d/i w/ no excessive bleeding or drainage ?I discussed with the patient the findings at the time of surgery and the patient?s progress. ?We reviewed expectations at home; what the patient could expect for recovery time, and in the post-operative period.? We discussed the importance of walking to avoid blood clots and pneumonia.? We discussed and reviewed the patient's post-operative wound care and dressing needs.?? We reviewed their step-paul pain management plan, Rx called to the pharmacy of their choice.? We reviewed activity and limitations-see discharge instructions. We reviewed warning signs, and when to seek medical attention- see d/c instructions.?? Patient was given a postoperative follow-up appointment. Patient verbalized understanding of their postoperative instructions, how do to take care of themselves and their incision, and the pain management plan. Please see discharge instructions.?
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
[2023-01-07] VITALS (11 sets, daily range): BP systolic 124–157; BP diastolic 53–98; PULSE 46–61; RESP 12–16; TEMP 36.1–36.4; O2SAT 97–100; BMI 31.2
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
[2023-01-07] MEDS: Acetaminophen 500 MG TAB 1000 MG PO (07:02)
[2023-01-07] MEDS: Gabapentin 300 MG CAP 600 MG PO (07:02)
[2023-01-07] MEDS: Lactated Ringers 1,000 ML 80 ML IV (07:25)
--- NOTE | 2023-01-07 07:31 | ROE_ITS ---
Date of service: 01/07/23 Time of Service: 07:31 Operative Note Operative Note DATE OF PROCEDURE: 01/07/23 PRE-OP DIAGNOSIS: right inguinal hernia POST-OP DIAGNOSIS: same (indirect) PROCEDURE: Open indirect right inguinal hernia repair with mesh SURGEON: Pauline Zhu TECHNICAL STAFF ASSISTANT: Teresa Anderson ANESTHESIA TYPE: Local By Surgeon, General LMA/ETT and Primary Nerve Block Refer to Anesthesia Record ESTIMATED BLOOD LOSS: 5 PATHOLOGY: none sent COMPLICATIONS: None Patient was transported to: PACU Patient's condition: stable Procedure Description: INDICATIONS: The pt is here today for surgery regarding symptomatic --- inguinal hernia that has failed outpatient conservative medical management and he is here today for repair. Informed consent was obtained, explaining risks and benefits of the procedure including but not limited to bleeding, infection, pneumonia, blood clots, chronic pain, chronic numbness, damage to testicle resulting in removal, recurrence of hernia, reaction to Mesh necessitating removal, and other unforetold complications, and complications of anesthesia-which were addressed by the MANAGER PURCHASING. The patient is marked in preOp prior to the procedure DESCRIPTION OF PROCEDURE:? The pt is then brought to the operative room suite. Anesthesia was administered per the Department of Anesthesia. ?A nerve block was performed by anesthesia under US guidance. The patient was prepped and draped in the usual sterile fashion using ChloraPrep scrub solution. Pause for the cause was done. He did receive preop IV antibiotics, and 30 mL of .25% Marcaine w/ epinephrine was used for local anesthetization. A #12 blade was used to make an incision over the external ring. Electrocautery used to provide hemostasis and dissect down to the fascia. The external oblique was open using avani. The cord is elevated. The nerve was identified and was cauterized there is a medium sized cord lipoma cord lipomas.? This is removed electro-cautery is used to provide hemostasis. A [place] drain was placed around the cord to assist in mobilization. The cord was explored. ?There was is moderate-sized hernia sac on the cord. There is no direct hernia pushing through the floor. The hernia sac is dissected off the cord using a combination of blunt dissection and electrocautery.? Electrocautery is used to provide hemostasis.?? There are no contents within the hernia sac.? High ligation of the sac is performed the hernia sac is than inverted and returned to the abdominal cavity.? A medium size plug is than inserted into the defect through the internal ring, and over sewn to tighten up the ring with 2-0 vicryl.? Please see RN notes from Lot number of the [employer] mesh patch/plug.? The cord structures are still able to freely move through the ring itself.? The patch was then placed onto the floor, and using 2- 0 Vicryl, sewn into the pubic tubercle and the shelving portions of the inguinal ligament, in the standard Lichenstein fashion.? ?The tails of the mesh are brought around the cord, sewn together w/ 2-0 Vicryl, and tucked under the external oblique.? The wound was copiously irrigated. There was no bleeding noted. The drain was removed. All structures are returned to normal anatomical position. The nerve is not sewn into the mesh, nor caught up in any sutures. The external oblique is re-approximated using 2-0 vicryl in a running fashion. ?Deep tissue was approximated with 3-0 Vicryl in a running fashion, and skin was approximated with 4-0 Monocryl in a running subcuticular fashion. Skin glue and sterile dressings are applied. The patient tolerated the procedure without complications to recovery in stable condition. PAULINE ZHU, DO
[2023-01-07] MEDS: ceFAZolin 2 GM/50 ML BAG IVPB (07:49)
[2023-01-07] MEDS: Bupivacaine 0.25% Pres-Free 30 ML VIAL (08:13)
--- NOTE | 2023-01-07 08:59 | W.ANESNERVE ---
Nerve Block Single Injection Procedure Date and Time Date Performed: 01/07/23 Procedure Start: 07:52 Location Where Procedure Performed Procedure Location: Operating Room Procedure Stop: 07:59 Reason Performed: Postoperative Analgesia Requesting Provider: Pauline Becerra Timeout Performed Timeout Performed: Yes Monitoring Used ECG, Blood Pressure and SpO2 Sterility Sterility: Hand Hygiene, Surgical Cap, Surgical Mask, Sterile Gloves and Chlorhexidine Sedation Given During Procedure Sedation Given (Indicate Dose Given): No Sedation given Patient Mental Status Patient Mental Status: Performed under general anesthesia Nerve Block 1st Nerve Block: Laterality: Right Block Type: TAP Unilateral Ultrasound Image Saved?: Yes Needle / Catheter Used: 80mm SonoPlex II Local Anesthetic Bolus (Indicate Dose Given): Injected in 3-5ml increments after negative blood aspiration and Bupivacaine 0.25% Dose:: 20 ml Additives (Indicate Dose Given): None Ultrasound: Sterile probe cover and gel used Nerve Stimulator: Not Used Paresthesia: None Procedure Tolerated: No Complications and Patient tolerated well Procedure Outcome: Successful Performed By: Chuck Conley
--- NOTE | 2023-01-07 10:10 | W.ANESPOSTOP ---
Postoperative Evaluation Date, Time and Location Date Performed: 01/07/23 Time Performed: 10:00 Patient Location: Day Surgery Unit Vital Signs Most Recent Imported Vital Signs: Most Recent Vital Signs Temp Pulse Resp BP Pulse Ox 36.3 C L 50 L 13 138/67 100 01/07/23 09:44 01/07/23 09:44 01/07/23 09:44 01/07/23 09:44 01/07/23 09:44 Pain Score Most Recent Pain Score: Most Recent Pain Score Pain Level 0 01/07/23 06:46 Assessment Mental Status: Awake (Alert & Oriented to Patient Baseline) Airway and Respiratory Function: Patent airway with normal (patient baseline) respiratory exam Cardiovascular Function: Hemodynamically Stable Hydration Status: Adequately Hydrated Nausea & Vomiting: No Nausea or Vomiting Pain: Pain is tolerable per patient (Currently reporting 05/03) Peripheral Nerve Block: Regional nerve block not resolved at time of post operative discharge
--- NOTE | 2023-01-07 10:24 | W.PM.DSUDISC ---
Date of service: 01/07/23 Time of Service: 10:27 Discharge Plan Disposition Patient Disposition: Home Condition: Good Discharge Details Reason For Visit: hernia repair Attending Provider: Pauline Becerra Primary Care Provider: Carolyn Pedraza Home Meds and New Rx's Prescriptions: New tramadol 50 mg tablet 50 mg PO Q4H PRNQty: 14 0RF polyethylene glycol 3350 [ClearLax] 17 gram/dose powder 17 g PO DAILY Qty: 238 0RF Rx Instructions: to avoid constipation postOp Continued acetaminophen [Tylenol Extra Strength] 500 mg tablet 1,500 mg PO HS PRN ibuprofen 200 mg capsule 800 mg PO Q6H PRN latanoprost 0.005 % drops 1 drp ophthalmic (eye) HS Patient Comments: INSTILL 1 DROP INTO RIGHT EYE EVERY DAY AT BEDTIME Rx Instructions: RIGHT EYE acyclovir 400 mg tablet 400 mg PO BID Patient Comments: TAKE 1 TABLET BY MOUTH TWICE DAILY 01/07 Pt denies using this medication dorzolamide-timolol 22.3-6.8 mg/mL drops 1 drp ophthalmic (eye) BID Patient Comments: INSTILL 1 DROP INTO RIGHT EYE TWICE DAILY Rx Instructions: RIGHT EYE omeprazole magnesium [Prilosec OTC] 20 mg tablet,delayed release (DR/EC) 20 mg PO DAILY PRN Discharge Instructions Additional Instructions: Dr. Becerra HERNIA REPAIR ? POSTOPERATIVE INSTRUCTIONS Patients who have this type of surgery can usually be expected to return to work within two weeks and have minimal amounts of discomfort. ? ACTIVITY: The day of surgery should be spent resting. However, you can be up for short periods of time, I.E., going to the bathroom or kitchen. Avoid lifting or straining. On the day following surgery, you can be up and about as desired. ? LIFTING: Restrict your lifting to no more than five (5) pounds for two weeks after surgery. ??We will decide when you are done with restrictions and when you can return to work, at your follow-up appointment.? No sexual activity for two weeks.? ? DIET: There are no dietary restrictions following surgery. However, you may want to start with small amounts of liquids to avoid nausea the day of surgery. ? INCISION CARE: You will notice purple skin glue closing the incision.? Do not peel this off- it will wear off on its own.? After 24 hours you may shower. The dressing may be replaced for comfort, but is not necessary. ?An ice bag may be applied to the incision for 72 hours following surgery. ? SIGNS OF INFECTION: It is not unusual to have some black and blue discoloration of the skin around the incision, but also scrotum and penis.? ?It will slowly disappear. If you have any increased redness, drainage, fever (above 100 degrees), please contact your doctor for an examination. ? DISCOMFORT: You may expect to have some mild discomfort at the incision sight. If severe pain develops you should contact your doctor for further instructions. ? URINATION: Patients who have surgery occasionally have problems urinating. If you experience problems and are not able to urinate within 6 hours following your surgery, please call your doctor immediately or go to your nearest Emergency Room for evaluation. ? DRIVING: NO driving for three (3) days after surgery, or if you are still taking narcotic pain medication.? ? MEDICATIONS: Alternate Tylenol 1000mg by mouth every 8 hours and Ibuprofen 600mg every 6 hours. ?Make sure you take ibuprofen with food and not on an empty stomach. ?Take the Tylenol and ibuprofen continuously for the first 72hrs- not just when you have pain.? Use the tramadol for breakthrough pain/pain >7.? Use ICE!?? Twenty minutes on, and then off, continuously for the first 72hours. If you are taking narcotic pain medication, follow the instructions on the label and do not drive. Pain medications can make you very constipated. Make sure you are moving your bowels daily. If not, take Miralax or Milk of Magnesia.?? Anesthesia makes you very constipated.? Take a dose of milk of magnesia the morning after surgery. ? REPORT: Unusual swelling, severe pain, unresolved nausea, signs of infection, or difficulty in urination to your surgeon. Follow up in clinic with Dr. Becerra in 2 weeks.? [phone] Activity:: see above Shower/Bathe:: 24 hours Diet:: As Tolerated Discharge Orders Discharge Orders: Discharge Order (Routine); Ordered 01/07/23 Ordered By: Pauline Becerra DS: Diagnosis Discharge Diagnosis (1) Right inguinal hernia: Status: Acute Asessment and Plan: The patient is doing well post-op from their right inguinal hernia surgery.? They are having no nausea or vomiting. They are tolerating liquids and a snack. The pt is not having any chest pain or SOB.? Their pain is adequately controlled. They have been able to urinate.? ?HEENT:? no eye pain/drainage/redness/swelling. Mild sore throat ?Cardio- NSR, no chest pain, BP stable- see VS record ?Pulm: no sob or productive cough. No hemoptysis ?Incision- dressing is c/d/i w/ no excessive bleeding or drainage ?I discussed with the patient the findings at the time of surgery and the patient?s progress. ?We reviewed expectations at home; what the patient could expect for recovery time, and in the post-operative period.? We discussed the importance of walking to avoid blood clots and pneumonia.? We discussed and reviewed the patient's post-operative wound care and dressing needs.?? We reviewed their step-paul pain management plan, Rx called to the pharmacy of their choice.? We reviewed activity and limitations-see discharge instructions. We reviewed warning signs, and when to seek medical attention- see d/c instructions.?? Patient was given a postoperative follow-up appointment. Patient verbalized understanding of their postoperative instructions, how do to take care of themselves and their incision, and the pain management plan. Please see discharge instructions.?
== END 2023-01-07 10:55 | disposition home or self-care (01) ==
LOC: SUR 06:17
PROVIDERS: PCP Nurse Practitioner Family; Visit Provider Surgery
PROC: (CPT 49505; principal; 2023-01-07 07:30)
DX: K40.90 Unilateral inguinal hernia, without obstruction or gangrene, not specified as recurrent (principal); J44.9 Chronic obstructive pulmonary disease, unspecified; I10 Essential (primary) hypertension; C85.19 Unspecified B-cell lymphoma, extranodal and solid organ sites
CPT/HCPCS: 49505; 76942; C1781; J0690; J2250; J2405; J3010

== ENCOUNTER → 2023-01-20 10:38 | Outpatient (BNVA) | payer MEDICARE, SELFPAY | PROVIDERS: PCP Nurse Practitioner Family; Referring Provider Nurse Practitioner Family; Visit Provider Surgery | DX: Z48.817 Encounter for surgical aftercare following surgery on the skin and subcutaneous tissue (principal); K40.90 Unilateral inguinal hernia, without obstruction or gangrene, not specified as recurrent ==

== ENCOUNTER 2023-01-20 11:07 | Outpatient (RCR) | payer MEDICARE, SELFPAY ==
[2023-01-20] MEDS: Heparin 500 UNITS/5 ML SYRINGE (11:55)
[2023-01-20 11:56] LABS: Abs Immature Grans 0.05 10^3/uL (0.0-0.06); Absolute Basophil Count 0.04 10^3/uL (0.0-0.2); Absolute Eosinophil Count 0.17 10^3/uL (0.0-0.7); Absolute Lymphocyte Count 1.35 10^3/uL (1.2-3.4); Absolute Monocyte Count 0.77 10^3/uL (0.1-0.8); Absolute Neutrophil Count 5.93 10^3/uL (1.2-6.7); Basophils % 0.5; HCT 38.6 % (40.0-50.0); HGB 13.1 g/dL (13.5-17.5); Immature Grans % 0.6; Lymphocytes % 16.2; MCH 28.7 pg (27.0-33.0); MCHC 33.9 % (32.0-36.0); MCV 85 fL (80-95); MPV 8.4 fL (8.0-11.0); Monocytes % 9.3; Neutrophils % 71.4; Platelet Count 252 10^3/uL (130-400); RBC 4.56 10^6/uL (4.36-5.78); RDW 13.6 % (11.8-14.1); RDW-SD 42.5 fL; WBC 8.31 10^3/uL (4.4-10.8)
[2023-01-20 12:14] LABS: ALT 23 U/L (16-63); AST 13 U/L (15-37); Albumin 3.8 g/dL (3.4-5.0); Alkaline Phosphatase 99 U/L (46-116); Anion Gap 9.9 mmol/L (3-11); BUN 19 mg/dL (7-18); Bilirubin, Total 0.4 mg/dL (0.2-1.0); CO2 27.1 mmol/L (21.0-32.0); Calcium 8.7 mg/dL (8.5-10.1); Chloride 106 mmol/L (98-107); Estimated GFR 80.97 (mL/min/1.73m2); Glucose 93 mg/dL (74-106); LDH 126 U/L (85-227); Potassium 3.8 mmol/L (3.5-5.1); Sodium 143 mmol/L (136-145); Total Protein 6.9 g/dL (6.4-8.2)
== END 2023-01-23 23:59 | disposition home or self-care (01) ==
LOC: INF 11:07
PROVIDERS: PCP Nurse Practitioner Family; Visit Provider Internal Medicine Hematology & Oncology
DX: C83.38 Diffuse large B-cell lymphoma, lymph nodes of multiple sites (principal); Z45.2 Encounter for adjustment and management of vascular access device
CPT/HCPCS: 36591; 80053; 96523; 83615; 85025

== ENCOUNTER → 2023-02-20 15:09 | Outpatient (BNVA) | payer MEDICARE, SELFPAY | PROVIDERS: PCP Nurse Practitioner Family; Referring Provider Nurse Practitioner Family; Visit Provider Nurse Practitioner Gerontology | DX: N48.6 Induration penis plastica (principal) | CPT/HCPCS: 99213 ==

== ENCOUNTER → 2023-03-31 02:12 | Outpatient (CLI) | payer MEDICARE, SELFPAY ==
--- OUTSIDE RECORDS SUMMARY | 2023-03-31 02:16 | XMS_ITS | Continuity of Care Document ---
Author Name Unknown Organization [facility] Address [address] [place] [address] Care Team Providers Care Residence Leasing Agent Name Role Phone NickolasalejandraCarolyn Primary Care Physician [facility] Date[facility] 12/14/21 - 01/19/22 [facility] [address] [place] [address] Discharge Disposition: Home or Self Care Attending Physician: Adalberto York MD Admitting Physician: Adalberto York MD Allergies, Adverse Reactions, Alerts No Known Allergies Medications HYDROmorphone 4 mg oral tablet 4 mg = 1 tab, Oral, every 4 hr, PRN as needed for pain, # 10 tab, 0 Refill(s), handwritten controlled substance (Rx) Start Date: 12/20/21 Status: Ordered Social History Social History Type Response Tobacco Never tobacco user T obacco Use:. Sex Male Surgery Hospital Progress note * Chary Lucas: PERFORM Event Display: Surgery Progress Note Authored Date: [id number] History and physical note * Sadia Saldana: PERFORM Event Display: History and Physical Authored Date: [id number] ZURI OCHOA :1950 Age:71 years Sex:Male Patient has Diffuse Large B cell lymphoma Electronically Signed on 12/14/21 02:39 PM Sadia Saldana Patient Care team information Personnel Name: Carolyn Pedraza ESTATE PLANNING DIRECTOR Address: Address: [address] [place] [id number]
--- OUTSIDE RECORDS SUMMARY | 2023-03-31 02:16 | XMS_ITS | Continuity of Care Document ---
Author Name Unknown Organization [facility] Address [address] [place] [address] Care Team Providers Care Preparer Making Department Name Role Phone Carolyn Pedraza Primary Care Physician [phone] Encounter NCTY_[place] Date(s): 12/20/21 - 12/20/21 [facility] [address] [place] [address] [place] Encounter Diagnosis Kidney stone on right side(Discharge Diagnosis) - 12/20/21 Discharge Disposition: Home or Self Care Attending Physician: Pelon Perdomo MD Admitting Physician: Pelon Perdomo MD Allergies, Adverse Reactions, Alerts No Known Allergies Assessment and Plan Extracted from: Title:Clinical Document Author:Nicol Robert Date :12/20/21 Diagnosis: 1. Kidney stone o n right side Comment: Diagnosis: Abdominal pain Comment: Functional Status 12/20/21 Family Member Travel History No recent t ravel Recent Travel History No recent travel Other exposure to Infectious Disease Non e Medications HYDROmorphone 4 mg oral tablet 4 mg = 1 tab, Oral, every 4 hr, PRN as needed for pain, # 10 tab, 0 Refill(s), handwritten controlled substance (Rx) Start Date: 12/20/21 Status: Ordered Mental Status 12/20/21 Eye Opening Response [place] Spontaneous ly Best Verbal Response Eunice Oriented Best Motor Response Eunice Obeys comman ds [place] Coma Score 15 Results Laboratory List Name Date CBC w/ Diff 12/20/21 Comprehensive Metabolic Panel (CMP) 11/25 09/14 Lipase Level 12/20/21 .Manual Differential (NCTY) 12/20/21 Most recent to oldest [Reference Range]: 1 WBC [5.0-10.0 x10^3/mcL] 0.6 x10^3/mcL 1 *CRIT* (12/20/21 3:40 AM) RBC [4.6-6.0 x10^6/mcL] 3.1 x10^6/mcL *LOW* (12/20/21 3:40 AM) Segs Man [40-75 %] 38 % *LOW* (12/20/21 3:40 AM) Lymph Man [20-50 %] 34 % (12/20/21 3:40 AM) [place] Man 13 % *NA* (12/20/21 3:40 AM) Eos Man 9 % *NA* (12/20/21 3:40 AM) BUN [7-18 mg/dL] 38 mg/dL *HI* (12/20/21 3:40 AM) Glucose Level [74-106 mg/dL] 100 mg/dL (12/20/21 3:40 AM) Potassium Level [3.5-5.1 mmol/L] 3.7 mmo l/L (12/20/21 3:40 AM) MCV [80.0-103.0 fL] 86.0 fL (12/20/21 3:40 AM) RBC Morph Normal (12/20/21 3:40 AM) AST [15-37 unit/L] 11 unit/L *LOW* (12/20/21 3:40 AM) ALT [16-63 unit/L] 26 unit/L (12/20/21 3:40 AM) MCHC [31.0-35.0 g/dL] 33.0 g/dL (12/20/21 3:40 AM) Sodium Level [136-145 mmol/L] 141 mmol/L (12/20/21 3:40 AM) Hct [41.0-51.0 %] 27.0 % *LOW* (12/20/21 3:40 AM) Lipase Level [16-77 unit/L] 14 unit/L *LOW* (12/20/21 3:40 AM) Calcium Level [8.5-10.1 mg/dL] 9.3 mg/dL (12/20/21 3:40 AM) Albumin Level [3.4-5.0 g/dL] 3.4 g/dL (12/20/21 3:40 AM) Protein Total [6.4-8.2 g/dL] 6.3 g/dL *LOW* (12/20/21 3:40 AM) MCH [26.0-32.0 pg] 28.3 pg (12/20/21 3:40 AM) Bilirubin Total [0.2-1.0 mg/dL] 0.4 mg/d L (12/20/21 3:40 AM) Hgb [14.0-18.0 g/dL] 8.9 g/dL *LOW* (12/20/21 3:40 AM) Alk Phos [46-146 unit/L] 110 unit/L (12/20/21 3:40 AM) Band Man [0-5 %] 1 % (12/20/21 3:40 AM) Platelets [130-450 x10^3/mcL] 77 x10^3/m cL *LOW* (12/20/21 3:40 AM) CO2 [21-32 mmol/L] 29 mmol/L (12/20/21 3:40 AM) eGFR Non-AA [>=60] 42 *LOW* (12/20/21 3:40 AM) eGFR AA [>=60] 42 *LOW* (12/20/21 3:40 AM) Chloride Level [98-107 mmol/L] 104 mmol/ L (12/20/21 3:40 AM) RDW-CV [11.5-17.0 %] 15.9 % (12/20/21 3:40 AM) Abs Neut Man 0.2 x10^3/mcL *NA* (12/20/21 3:40 AM) Immature Cells 5 *NA* (12/20/21 3:40 AM) Creatinine Level [0.70-1.30 mg/dL] 1.74 mg/dL *HI* (12/20/21 3:40 AM) Baso Man [0-1 %] 0 % (12/20/21 3:40 AM) 1Result Comment: Called to DR Bradley at _12/20/2021 04:08:14 EDT Vital Signs Most recent to oldest [Reference Range]: 1 2 Temperature Tympanic [36.6-37.9 Deg C] 3 6.6 Deg C (12/20/21 5:00 AM) 36.5 Deg C *LOW* (12/20/21 2:45 AM) Peripheral Pulse Rate [60-100 bpm] 75 bp m (12/20/21 5:00 AM) 72 bpm (12/20/21 2:45 AM) Respiratory Rate [12-24 br/min] 16 br/mi n (12/20/21 5:00 AM) 18 br/min (12/20/21 2:45 AM) Blood Pressure [90-140/60-90 mmHg] 150/7 0mmHg *HI* (12/20/21 5:00 AM) 164/68mmHg *HI* (12/20/21 2:45 AM) Weight Dosing 88.00 kg (12/20/21 2:58 AM) Weight Estimated 88.00 kg (12/20/21 2:45 AM) Height/Length Dosing 175.000 cm (12/20/21 2:58 AM) Height/Length Estimated 175.000 cm (12/20/21 2:45 AM) Social History Social History Type Response Tobacco Never tobacco user T obacco Use:. Sex Male Hospital Discharge Instructions Patient Education 12/20/2021 03:47:28 Kidney Stones, Wenp-gg-Xrvs Kidney Stones Kidney stones are rock-like masses that form inside of the kidneys. Kidneys are organs that make pee (urine). A kidney stone may move into other parts of the urinary tract, including: ??? The tubes that connect the kidneys to the bladder (ureters). ??? The bladder. ??? The tube that carries urine out of the body (urethra). Kidney stones can cause very bad pain and can block the flow of pee. The stone usually leaves your body (passes) through your pee. You may need to have a doctor take out the stone. What are the causes? Kidney stones may be caused by: ??? A condition in which certain glands make too much parathyroid hormone (primary hyperparathyroidism). ??? A buildup of a type of crystals in the bladder made of a chemical called uric acid. The body makes uric acid when you eat certain foods. ??? Narrowing (stricture) of one or both of the ureters. ??? A kidney blockage that you were born with. ??? Past surgery on the kidney or the ureters, such as gastric bypass surgery. What increases the risk? You are more likely to develop this condition if: ??? You have had a kidney stone in the past. ??? You have a family history of kidney stones. ??? You do not drink enough water. ??? You eat a diet that is high in protein, salt (sodium), or sugar. ??? You are overweight or very overweight (obese). What are the signs or symptoms? Symptoms of a kidney stone may include: ??? Pain in the side of the belly, right below the ribs (flank pain). Pain usually spreads (radiates) to the groin. ??? Needing to pee often or right away (urgently). ??? Pain when going pee (urinating). ??? Blood in your pee (hematuria). ??? Feeling like you may vomit (nauseous). ??? Vomiting. ??? Fever and chills. How is this treated? Treatment depends on the size, location, and makeup of the kidney stones. The stones will often pass out of the body through peeing. You may need to: ??? Drink more fluid to help pass the stone. In some cases, you may be given fluids through an IV tube put into one of your veins at the hospital. ??? Take medicine for pain. ??? Make changes in your diet to help keep kidney stones from coming back. Sometimes, medical procedures are needed to remove a kidney stone. This may involve: ??? A procedure to break up kidney stones using a beam of light (laser) or shock waves. ??? Surgery to remove the kidney stones. Follow these instructions at home: Medicines ??? Take cgkv-oyy-ovpptzz and prescription medicines only as told by your doctor. ??? Ask your doctor if the medicine prescribed to you requires you to avoid driving or using heavy machinery. Eating and drinking ??? Drink enough fluid to keep your pee pale yellow. You may be told to drink at least 8???10 glasses of water each day. This will help you pass the stone. ??? If told by your doctor, change your diet. This may include: ??? Limiting how much salt you eat. ??? Eating more fruits and vegetables. ??? Limiting how much meat, poultry, fish, and eggs you eat. ??? Follow instructions from your doctor about eating or drinking restrictions. General instructions ??? Collect pee samples as told by your doctor. You may need to collect a pee sample: ??? 24 hours after a stone comes out. ??? 8???12 weeks after a stone comes out, and every 6???12 months after that. ??? Strain your pee every time you pee (urinate), for as long as told. Use the strainer that your doctor recommends. ??? Do not throw out the stone. Keep it so that it can be tested by your doctor. ??? Keep all follow-up visits as told by your doctor. This is important. You may need follow-up tests. How is this prevented? To prevent another kidney stone: ??? Drink enough fluid to keep your pee pale yellow. This is the best way to prevent kidney stones. ??? Eat healthy foods. ??? Avoid certain foods as told by your doctor. You may be told to eat less protein. ??? Stay at a healthy weight. Where to find more information ??? National Kidney Foundation (NKF): www.kidney.org ??? [employer] (UCF): www.urologyhealth.org Contact a doctor if: ??? You have pain that gets worse or does not get better with medicine. Get help right away if: ??? You have a fever or chills. ??? You get very bad pain. ??? You get new pain in your belly (abdomen). ??? You pass out (faint). ??? You cannot pee. Summary ??? Kidney stones are rock-like masses that form inside of the kidneys. ??? Kidney stones can cause very bad pain and can block the flow of pee. ??? The stones will often pass out of the body through peeing. ??? Drink enough fluid to keep your pee pale yellow. This information is not intended to replace advice given to you by your health care provider. Make sure you discuss any questions you have with your health care provider. Document Revised: 06/25/2019 Document Reviewed: 06/29/2019 Elsevier Patient Education ?? 2021 [employer] Follow Up Care 12/20/2021 02:45:06 With:Carolyn Pedraza NP Address: [address] [place] [id number]- When:3 to 5 days Patient Care team information Personnel Name: Carolyn Pedraza SOLE LAYER Address: Address: [address] [place] [phone]- [place]
--- OUTSIDE RECORDS SUMMARY | 2023-03-31 02:16 | XMS_ITS | Continuity of Care Document ---
Author Name Unknown Organization [facility] Address [address] [place] [address] Care Team Providers Care Stock Hanger Name Role Phone Carolyn Pedraza Primary Care Physician Encounter NCTY_[place] Date(s): 07/31/22 - 11/28/[address] [address] Discharge Disposition: Home or Self Care Attending Physician: Kami Palafox MD Admitting Physician: Kami Palafox MD Referring Physician: Kami Palafox MD Allergies, Adverse Reactions, Alerts No Known Allergies Medications HYDROmorphone 4 mg oral tablet 4 mg = 1 tab, Oral, every 4 hr, PRN as needed for pain, # 10 tab, 0 Refill(s), handwritten controlled substance (Rx) Start Date: 12/20/21 Status: Ordered Social History Social History Type Response Tobacco Never tobacco user T obacco Use:. Sex Male Patient Care team information Care Team Personnel Name: Carolyn Pedraza FISHER EEL SPEAR Position: PowerChart View Only Member Role: Primary Care Physician Address: Address: [address] [place] [id number] Care Team Related Persons Name: GALINDOLESLIESHRUTI Address: Home Name: LUIS ALFREDO WEBB Address: Home
--- NOTE | 2023-03-31 09:30 | DI.US_ITS ---
APPROVED REPORT EXAM: Comprehensive 2D, Doppler, and color-flow Echocardiogram Patient Location: Out-Patient Rivet Hole Puncher: Lizandro Art RDCS (AE) Indications: High risk medication use, baseline, s/p chemo Conclusion 1. Left atrium mildly dilated, other chambers normal sizes 2. Borderline normal LV function, EF 50-55%. Normal RV function 3. Mild aortic sclerosis,mild mitral annular calcification. Mild MR, mild TR 4. No intracardiac shunt 5. No pericardial effusion. Wall motion Left Ventricle The left ventricle is normal size. The left ventricular systolic function is normal. The left ventric ular ejection fraction is within the normal range. There is normal left ventricular wall thickness. T here is normal LV segmental wall motion. There is no ventricular septal defect visualized. LVEF is 50 -55%. Right Ventricle The right ventricle is normal size. The right ventricular systolic function is normal. Atria Left atrium is mildly dilated. The right atrium size is normal. Atrial septal aneurysm is present wit hout PFO. Aortic Valve The Aortic valve is sclerotic. Number of aortic valve leaflets could not be assessed. There is no aor tic valvular stenosis. Trace aortic regurgitation. Mitral Valve The mitral valve is normal in structure. No evidence of mitral valve stenosis. Mild mitral regurgitat ion. Tricuspid Valve The tricuspid valve is normal in structure. There is no tricuspid valve stenosis. Trace tricuspid reg urgitation. Unable to assess PA pressure. Pulmonic Valve The pulmonary valve is normal in structure. There is no pulmonic valvular stenosis. There is no pulmo jaziel valvular regurgitation. Great Vessels The aortic root is normal in size. The ascending aorta is mildly dilated. Aortic arch is normal in ca liber. IVC is normal in size and collapses >50% with inspiration. Pericardium There is no pericardial effusion. 2D Dimensions IVSD d PLAX 0.69 cm M: 0.6-1.2 Ao Root d 3.04 cm M: 3.1 - 3.7 LVPW d PLAX 0.72 cm M: 0.6 - 1.2 Ao Asc Diam d 3.53 cm M: 2.6 - 3.4 LVID d PLAX 5.71 cm M: 4.2 - 5.8 LVDs 4.29 cm M: 2.5 - 4.0 LV EF Teichholz 48.8 % FS 25.00 % LV EDV (Teich) 161.0 mL LV ESV (Teich) 82.4 mL Stroke Vol Index (Teich) 36.88 M-Mode TAPSE 2.35 cm (M/F) >1.7 Auto EF LV EDV A4C 119.5 mL LV EDV A2C 148.1 mL LV EDV BP 132.7 mL LV ESV A4C 66.5 mL LV ESV A2C 87.2 mL LV ESV BP 73.7 mL LVEF(%) A4C 44.4 % LVEF(%) A2C 41.1 % LVEF(%) BP 44.4 % LV SV A4C 53.0 ml LV SV A2C 60.9 ml LV SV BP 59.0 ml LV CO A4C 2.5 L/min LV CO A2C 2.8 L/min LV CO BP 2.6 L/min HR A4C 46.44 BPM HR A2C 45.69 BPM LV EDV Index (BP) LV Strain Long Pk Overal Avg (s) 13.67 LA Volume LA Length A4C 5.9 cm LA Length A2C 5.4 cm LA Area A4C s 16.64 cm2 LA Area A2C s 15.70 cm2 LA Vol A4C A-L 39.85 mL LA Vol A2C A-L 38.88 mL LA Vol Biplane A-L 41.2 mL LA Vol/BSA A4C A-L LA Vol/BSA A2C A-L LA Vol/BSA BP A-L 19.3 mL/m2 LA Vol A4C MOD 38.5 mL LA Vol A2C MOD 37.7 mL LA Vol BP MOD 39.7 mL RA Volume RA Area A4C 17.9 cm2 RA ESV A4C (A-L) 52.8mL RA Vol/BSA A4C A-L RA Length A4C 5.2 cm RA ESV A4C (MOD) 49.3mL LV Diastology MV E' medial 0.065 (>0.07 m/s) MV E Vmax 0.56 (0.4-1.3 m/s) MV E/E' MED 8.72 (<14) MV A Vmax 0.70 (0.4-1.3 m/s) MV E' lateral 0.106 (>0.1 m/s) E/A Ratio 0.8 MV E/E' LAT 5.30 (<14) MV E' Average 0.085 m/s MV E/E'(average) 6.59 Aortic Valve AoV Vmax 1.59 m/s LVOT Vmax 1.05 m/s AoV Peak Grad 10.1 mmHg LVOT Peak Grad 4.4 mmHg AoV Area (Vmax) 2.22 cm2 LVOT VTI 0.267 m AoV VTI 0.393 m LVOT Mean Grad 2.5 mmHg AoV Mean Jorge. 1.07 m/s LVOT SV 89.61 mL AoV Mean Grad 5.4 mmHg LVOT Diam s 2.05 cm AoV Area (VTI) 2.28 cm2 Velocity Ratio 0.66 Mitral Valve MV DT 238 (160-240 msec) Pulmonary Valve PV Vmax 0.90 (0.5-1.5 m/s) RVOT Vmax 0.61 m/s PV Peak Grad 3.3 mmHg RVOT Peak Gr. 1.5 mmHg PV Mean Jorge 0.68 m/s RVOT VTI 0.156 m PV Mean Grad 2.0 mmHg RVOT Mean Gr. 0.9 mmHg
== END ==
PROVIDERS: PCP Nurse Practitioner Family; Visit Provider Internal Medicine
DX: Z79.899 Other long term (current) drug therapy (principal)
CPT/HCPCS: 93306

== ENCOUNTER 2023-04-30 11:50 | Outpatient (REF) | payer MEDICARE, SELFPAY ==
[2023-04-30 20:29] LABS: ALT 34 U/L (16-63); AST 18 U/L (15-37); Albumin 4.2 g/dL (3.4-5.0); Alkaline Phosphatase 98 U/L (46-116); BUN 29 mg/dL (7-18); Bilirubin, Total 0.6 mg/dL (0.2-1.0); CREATININE 1.1 mg/dL (0.70-1.30); Calcium 9.1 mg/dL (8.5-10.1); Calculated LDL 139 mg/dL (<100); Chloride 105 mmol/L (98-107); Cholesterol 206 mg/dL (<200); Estimated GFR 71.77 (mL/min/1.73m2); Glucose 85 mg/dL (74-106); HDL Cholesterol 41 mg/dL (40-60); Potassium 4.5 mmol/L (3.5-5.1); Sodium 142 mmol/L (136-145); Total Protein 7.3 g/dL (6.4-8.2); Triglyceride 130 mg/dL (<150)
[2023-05-01 18:37] LABS: PSA, Screening 0.7 ng/mL (<=6.5)
== END 2023-04-30 11:51 | disposition home or self-care (01) ==
LOC: NCHCN 11:50
PROVIDERS: PCP Nurse Practitioner Family; Referring Provider Nurse Practitioner Family; Visit Provider Nurse Practitioner Family
DX: E83.52 Hypercalcemia (principal); I10 Essential (primary) hypertension; Z12.5 Encounter for screening for malignant neoplasm of prostate
CPT/HCPCS: 80053; 80061; 84153

== ENCOUNTER 2023-05-14 04:47 | Outpatient (RCR) | payer MEDICARE, SELFPAY ==
[2023-05-14] MEDS: Normal Saline Flush 10 ML SYR IVP (07:05)
[2023-05-14 07:17] LABS: Abs Immature Grans 0.05 10^3/uL (0.0-0.06); Absolute Basophil Count 0.05 10^3/uL (0.0-0.2); Absolute Eosinophil Count 0.23 10^3/uL (0.0-0.7); Absolute Lymphocyte Count 1.69 10^3/uL (1.2-3.4); Absolute Monocyte Count 0.91 10^3/uL (0.1-0.8); Absolute Neutrophil Count 5.13 10^3/uL (1.2-6.7); Basophils % 0.6; Eosinophils % 2.9; HCT 43.5 % (40.0-50.0); HGB 14.8 g/dL (13.5-17.5); Immature Grans % 0.6; MCH 29.1 pg (27.0-33.0); MCV 86 fL (80-95); MPV 8.9 fL (8.0-11.0); Monocytes % 11.3; Neutrophils % 63.6; Platelet Count 192 10^3/uL (130-400); RBC 5.08 10^6/uL (4.36-5.78); RDW 13.8 % (11.8-14.1); RDW-SD 43.4 fL; WBC 8.06 10^3/uL (4.4-10.8)
[2023-05-14 07:32] LABS: ALT 42 U/L (16-63); AST 19 U/L (15-37); Albumin 4.3 g/dL (3.4-5.0); Alkaline Phosphatase 92 U/L (46-116); Anion Gap 10.3 mmol/L (3-11); BUN 27 mg/dL (7-18); Bilirubin, Total 0.6 mg/dL (0.2-1.0); CO2 27.7 mmol/L (21.0-32.0); CREATININE 1.2 mg/dL (0.70-1.30); Calcium 8.9 mg/dL (8.5-10.1); Chloride 105 mmol/L (98-107); Estimated GFR 64.65 (mL/min/1.73m2); Glucose 91 mg/dL (74-106); LDH 157 U/L (85-227); Potassium 4.1 mmol/L (3.5-5.1); Sodium 143 mmol/L (136-145); Total Protein 7.3 g/dL (6.4-8.2)
== END 2023-05-25 23:59 | disposition home or self-care (01) ==
LOC: INF 04:47
PROVIDERS: PCP Nurse Practitioner Family; Visit Provider Internal Medicine Hematology & Oncology
DX: C83.38 Diffuse large B-cell lymphoma, lymph nodes of multiple sites (principal); Z45.2 Encounter for adjustment and management of vascular access device
CPT/HCPCS: 36591; 80053; 83615; 85025

== ENCOUNTER 2023-06-16 08:45 | Outpatient (RCR) | payer MEDICARE, SELFPAY ==
[2023-06-16] MEDS: Normal Saline Flush 10 ML SYR IVP (08:53)
[2023-06-16 09:14] LABS: Abs Immature Grans 0.03 10^3/uL (0.0-0.06); Absolute Basophil Count 0.04 10^3/uL (0.0-0.2); Absolute Eosinophil Count 0.34 10^3/uL (0.0-0.7); Absolute Lymphocyte Count 1.36 10^3/uL (1.2-3.4); Absolute Monocyte Count 0.82 10^3/uL (0.1-0.8); Absolute Neutrophil Count 4.11 10^3/uL (1.2-6.7); Basophils % 0.6; Eosinophils % 5.1; HCT 41.3 % (40.0-50.0); HGB 14.2 g/dL (13.5-17.5); Immature Grans % 0.4; Lymphocytes % 20.3; MCH 29.3 pg (27.0-33.0); MCHC 34.4 % (32.0-36.0); MCV 85 fL (80-95); MPV 8.9 fL (8.0-11.0); Monocytes % 12.2; Neutrophils % 61.4; Platelet Count 204 10^3/uL (130-400); RBC 4.85 10^6/uL (4.36-5.78); RDW 14.2 % (11.8-14.1); RDW-SD 43.9 fL
[2023-06-16 09:34] LABS: ALT 106 U/L (16-63); AST 33 U/L (15-37); Albumin 3.9 g/dL (3.4-5.0); Alkaline Phosphatase 91 U/L (46-116); Anion Gap 8.3 mmol/L (3-11); BUN 28 mg/dL (7-18); Bilirubin, Total 0.6 mg/dL (0.2-1.0); CO2 28.7 mmol/L (21.0-32.0); Calcium 8.8 mg/dL (8.5-10.1); Chloride 107 mmol/L (98-107); Estimated GFR 80.47 (mL/min/1.73m2); Glucose 70 mg/dL (74-106); LDH 209 U/L (85-227); Sodium 144 mmol/L (136-145); Total Protein 6.9 g/dL (6.4-8.2)
== END 2023-06-24 23:59 | disposition home or self-care (01) ==
LOC: INF 08:45
PROVIDERS: Nurse Practitioner Adult Health; PCP Nurse Practitioner Family; Visit Provider Internal Medicine Hematology & Oncology
DX: C83.38 Diffuse large B-cell lymphoma, lymph nodes of multiple sites (principal); Z45.2 Encounter for adjustment and management of vascular access device
CPT/HCPCS: 36591; 80053; 83615; 85025

== ENCOUNTER → 2023-07-22 00:06 | Outpatient (CLI) | payer MEDICARE, SELFPAY ==
[2023-07-22] MEDS: Barium Sulfate 2% W/V-Creamy Vanilla Smoothie 450 ML BTL PO ×2 (11:49→11:50)
[2023-07-22] MEDS: Omnipaque 350 MG/ML 100 ML BTL 150 ML IJ (13:55)
[2023-07-22] MEDS: Normal Saline - Diluent 50 ML VIAL IJ (13:55)
--- NOTE | 2023-07-22 14:10 | DI.CT_ITS ---
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 TECHNIQUE: Imaging Protocol: Axial computed tomography images with coronal and sagittal reformatted images were created and reviewed. CONTRAST MATERIAL: Intravenous: Contrast Contrast volume:structured data in mlmL Intravenous: Omnipaque 350 contrast volume:150 mL Oral: Yes COMPARISON: CT CT ABDOMEN WO/W from 05/29/[address] CHEST WO from 01/30/2022 FINDINGS: Pulmonary parenchyma: There is a 0.7 x 1.5 new pleural based nodule in the left lower lobe (series 5, image 333). No architectural distortion. Visualized thyroid gland: Unremarkable. Mediastinum and Gina: No dominant adenopathy or fluid collection. The esophagus is unremarkable. Pleura: No effusion or pneumothorax. Heart: The heart is not dilated. No coronary artery calcifications are seen. No pericardial effusion. Pulmonary arteries: No pulmonary emboli are identified. Aorta: Thoracic aorta non-dilated. Atherosclerotic calcification is present. No evidence of dissecti on. Lymph nodes: Within normal limits. Tubes, Catheters, and Lines: The patient has a right-sided Jcfnye-K-Sztf type catheter. Soft tissues: There is now a soft tissue mass along the right lateral chest wall measuring 8.6 long 7 .9 AP by 2.4 transverse by 8.6 cm long. Bones:Within normal limits for the patient's age. ABDOMEN: Liver: Normal density. No measurable mass. Portal, Superior Mesenteric, and Splenic Veins: Unremarkable. Gallbladder and Biliary Tract: No radiodense calculus or dilation. Pancreas: Normal density, no abnormal calcifications or inflammatory process. Spleen: Normal. Adrenals: No masses seen. Kidneys: Normal size, contour and axis. Bilateral nephrolithiasis. There are bilateral simple cysts in the kidneys. No follow-up is recommended. No suspicious masses are present. Abdominal Aorta: Abdominal portion non-dilated. Atherosclerotic calcification is present. Bowel: There is diverticulosis of the colon without evidence of acute diverticulitis. No evidence of bowel obstruction or bowel wall thickening. There is a normal appendix present. Peritoneal Cavity: No ascites, collection or mesenteric inflammatory response. No free air. Lymph Nodes: There is an enlarged right inguinal lymph node measuring 3 x 3.7 cm. (Series 10, image 623). Bones: Within normal limits for the patient's age. Soft Tissues: There is a soft tissue mass superficial 2 but appears to be invading the right rectus a bdominus muscle. It measures at least 5.9 transverse by 3.3 AP by 4.4 craniocaudad cm. There are se veral small soft tissue nodule seen in the subcutaneous tissues in the abdomen and pelvis. There is mild infiltration of the soft tissues in the right lateral abdominal wall. PELVIS: Bladder: Symmetric distention, no gross wall thickening. Reproductive Organs: The prostate gland is enlarged. Lymph Nodes: Within normal limits. Bones: Within normal limits. Orbits and orbital soft tissues: The patient has a left prostatic I. Visualized paranasal sinuses: There is mild mucosal thickening in the left maxillary sinus. Nasopharynx: Within normal limits. Oropharynx: Within normal limits. Hypopharynx: Within normal limits. Larynx: Within normal limits. Retropharyngeal space: Within normal limits. Parotids/submandibular: Within normal limits. Lymphadenopathy: There is scattered lymph nodes seen along the level one to level three all measuring less than 8 mm in short axis diameter which are physiologic in nature. Trachea: Within normal limits. Bones: Within normal limits for the patient's age. Carotids/Jugular: Within normal limits. Soft tissues: There are multiple soft tissue masses present suggesting metastatic disease. The larg est is superficial to the right scapula and measures 6.0 transverse by 2.2 AP by 6.6 craniocaudad cm. IMPRESSION: 1. Findings of metastatic disease in adenopathy in the right inguinal region in the subcutaneous tiss ues of the chest, abdominal and pelvis. 2. There is a 0.7 x 1.5 cm pleural based soft tissue mass associated with the left major fissure whic h may reflect metastatic disease. RADIATION DOSE DELIVERED: 3,190.7mGy.cm Total DLP 3,190.7mGy.cm Total DLP DATA REPOSITORY: All CT scans at this facility are submitted to the National Radiology Data Registry (NRDR) Dose Index Registry (DIR) with the [employer] (A[employer]). RADIATION OPTIMIZATION: All CT scans at this facility use at least one of these dose optimization te chniques: automated exposure control; mA and/or kV adjustment per patient size (includes targeted exa ms where dose is matched to clinical indication); or iterative reconstruction.
== END ==
PROVIDERS: PCP Nurse Practitioner Family; Visit Provider Internal Medicine Hematology & Oncology
DX: C83.38 Diffuse large B-cell lymphoma, lymph nodes of multiple sites (principal)
CPT/HCPCS: 70491; 74177; 71260; J3490

== ENCOUNTER 2023-07-22 01:17 | Outpatient (RCR) | payer MEDICARE, SELFPAY ==
[2023-07-22] MEDS: Normal Saline Flush 10 ML SYR IVP (10:20)
[2023-07-22 10:43] LABS: Abs Immature Grans 0.02 10^3/uL (0.0-0.06); Absolute Basophil Count 0.04 10^3/uL (0.0-0.2); Absolute Eosinophil Count 0.39 10^3/uL (0.0-0.7); Absolute Lymphocyte Count 1.48 10^3/uL (1.2-3.4); Absolute Monocyte Count 0.88 10^3/uL (0.1-0.8); Absolute Neutrophil Count 4.51 10^3/uL (1.2-6.7); Basophils % 0.5 %; Eosinophils % 5.3 %; HCT 40.3 % (40.0-50.0); HGB 13.9 g/dL (13.5-17.5); Immature Grans % 0.3 %; Lymphocytes % 20.2 %; MCH 29.4 pg (27.0-33.0); MCHC 34.5 % (32.0-36.0); MCV 85 fL (80-95); MPV 8.8 fL (8.0-11.0); Neutrophils % 61.7 %; Platelet Count 216 10^3/uL (130-400); RBC 4.72 10^6/uL (4.36-5.78); RDW 13.9 % (11.8-14.1); RDW-SD 43.5 fL; WBC 7.32 10^3/uL (4.4-10.8)
[2023-07-22 11:13] LABS: ALT 35 U/L (16-63); AST 23 U/L (15-37); Albumin 4.3 g/dL (3.4-5.0); Alkaline Phosphatase 84 U/L (46-116); Anion Gap 9.2 mmol/L (3-11); BUN 25 mg/dL (7-18); Bilirubin, Total 0.9 mg/dL (0.2-1.0); CO2 26.8 mmol/L (21.0-32.0); CREATININE 1.3 mg/dL (0.70-1.30); Calcium 8.6 mg/dL (8.5-10.1); Chloride 105 mmol/L (98-107); Estimated GFR 58.73 (mL/min/1.73m2); Glucose 84 mg/dL (74-106); LDH 293 U/L (85-227); Potassium 4.2 mmol/L (3.5-5.1); Sodium 141 mmol/L (136-145); Total Protein 7.2 g/dL (6.4-8.2)
== END 2023-07-25 23:59 | disposition home or self-care (01) ==
LOC: INF 01:17
PROVIDERS: PCP Nurse Practitioner Family; Visit Provider Internal Medicine Hematology & Oncology
DX: C83.38 Diffuse large B-cell lymphoma, lymph nodes of multiple sites (principal)
CPT/HCPCS: 36591; 80053; 83615; 85025

== ENCOUNTER → 2023-08-05 01:59 | Outpatient (CLI) | payer MEDICARE, SELFPAY ==
--- NOTE | 2023-08-05 | DI.CT_ITS ---
Exam(s) CT LOWER EXTREMITY RT W EXAM: CT LOWER EXTREMITY RT W CLINICAL HISTORY: LYMPHOMA RT LEG,BASELINE,c83.38. TECHNIQUE: Imaging Protocol: Axial computed tomography images with coronal and sagittal reformatted images were created and reviewed. CONTRAST MATERIAL: Intravenous: Omnipaque 350. Contrast Volume: [address] NECK CHEST ABD PEL W from 07/22/2023 FINDINGS: Bones: The osseous structures and articular surfaces are intact. Bony alignment is satisfactory. N o cellulitic or osteomyelitic changes are identified. There is no evidence of joint space narrowing or cystic degeneration seen. No lytic or sclerotic lesions are identified. Soft Tissues: The right inguinal lymph node measures 3.0 x 1.4 cm compared to 3.8 x 2.6 cm on the kulwinder or examination. There are several subcutaneous masses in the right lower extremity. The largest are a is seen posterior medially and measures 1.7 transverse by 3.6 AP by 4.9 craniocaudad cm. This luann esponds to an area of increased uptake on the PET scan. The soleus muscle is enlarged and shows some enhancement superiorly. The area of enhancement measures 5.5 cm craniocaudad by 1.8 cm AP by 8.6 cm transverse. There is a subtle area of decreased attenuation in the superior aspect of the soleus. There is edema seen in the soft tissues of the lower extremity. No focal fluid collection is seen in the subcutaneous soft tissues to suggest an abscess. Enhancement: Please see the above section under soft tissues. IMPRESSION: 1. Interval decrease in size of the right inguinal lymph node since the prior examination from 024. Several subcutaneous enhancing masses are seen in the right lower extremity. The findings are suspicious for the patient's known lymphoma/metastatic disease. These areas show uptake on the patie nt's PET scan particularly the large area in the posterior medial thigh. 2. Slight enhancement of the soleus muscle which appears enlarged. This area does not show uptake on the PET scan. This area should be further evaluated with an MRI without and with contrast. 3. Cellulitis in the lower extremity without focal fluid collection to suggest an abscess. RADIATION DOSE DELIVERED: 1,008.67mGy.cm Total DLP 1,008.67mGy.cm Total DLP DATA REPOSITORY: All CT scans at this facility are submitted to the National Radiology Data Registry (NRDR) Dose Index Registry (DIR) with the [employer] (ACR). RADIATION OPTIMIZATION: All CT scans at this facility use at least one of these dose optimization te chniques: automated exposure control; mA and/or kV adjustment per patient size (includes targeted exa ms where dose is matched to clinical indication); or iterative reconstruction.
--- NOTE | 2023-08-05 | DI.US_ITS ---
Exam(s) US EXTREMITY VENOUS BI EXAM: US EXTREMITY VENOUS BI CLINICAL HISTORY: LOCALIZED SWELLING BOTH LEGS, r22.43,? DVT, ACTIVE MALIGNANCY. TECHNIQUE: Bilateral lower extremity venous ultrasound performed using grayscale, color-flow, and sp ectral Doppler analysis. COMPARISON: No exams were available for comparison FINDINGS: The right common femoral, femoral and popliteal veins demonstrate normal compressibility, augmentatio n, and color Doppler. The posterior tibial and peroneal veins are patent. The saphenofemoral junctio n is unremarkable. There is no evidence of a Sanchez's cyst. There is soft tissue nodule seen in the l ower extremities consistent with the multiple areas of uptake seen on the patient's PET scan from 02/25 and likely reflecting the patient's malignancy. The largest such area is seen in the posterio r medial right thigh. Sonographically measures 3.8 x 1.2 x 3 cm. This can be visualized on the CT s can of the lower extremity performed the same day and on the PET scan from 03/21/2023. The left common femoral, femoral and popliteal veins demonstrate normal compressibility, augmentation , and color Doppler. The posterior tibial and peroneal veins are patent. The saphenofemoral junction is unremarkable. There is no evidence of a Sanchez's cyst. The soft tissues are unremarkable. IMPRESSION: 1. No evidence of a right lower extremity DVT. 2. No evidence of a left lower extremity DVT. DATA REPOSITORY:
[2023-08-05] MEDS: Omnipaque 350 MG/ML 500 ML BTL-Imaging package 100 ML IJ (10:23)
== END ==
PROVIDERS: PCP Nurse Practitioner Family; Visit Provider Internal Medicine Hematology & Oncology
DX: R22.43 Localized swelling, mass and lump, lower limb, bilateral (principal)
CPT/HCPCS: 73701; 93970

== ENCOUNTER 2023-08-20 01:18 | Outpatient (RCR) | payer MEDICARE, SELFPAY ==
[2023-08-05] MEDS: Normal Saline Flush 10 ML SYR IVP (09:15)
[2023-08-13] MEDS: Normal Saline Flush 10 ML SYR IVP (08:30)
[2023-08-13 09:03] LABS: Abs Immature Grans 0.15 10^3/uL (0.0-0.06); Absolute Basophil Count 0.03 10^3/uL (0.0-0.2); Absolute Eosinophil Count 0.01 10^3/uL (0.0-0.7); Absolute Monocyte Count 0.68 10^3/uL (0.1-0.8); Basophils % 0.2 %; Eosinophils % 0.1 %; HCT 37.8 % (40.0-50.0); HGB 12.6 g/dL (13.5-17.5); Immature Grans % 1.1 %; Lymphocytes % 5.1 %; MCH 29.8 pg (27.0-33.0); MCHC 33.3 % (32.0-36.0); MCV 89 fL (80-95); MPV 10.1 fL (8.0-11.0); Monocytes % 4.9 %; Neutrophils % 88.6 %; Platelet Count 150 10^3/uL (130-400); RBC 4.23 10^6/uL (4.36-5.78); RDW 14.2 % (11.8-14.1); RDW-SD 45.8 fL; WBC 13.79 10^3/uL (4.4-10.8)
[2023-08-13 09:06] LABS: Absolute Neutrophil Count 12.22 10^3/uL (1.2-6.7)
[2023-08-13 09:21] LABS: ALT 29 U/L (16-63); AST 13 U/L (15-37); Albumin 3.2 g/dL (3.4-5.0); Alkaline Phosphatase 77 U/L (46-116); Anion Gap 9.5 mmol/L (3-11); BUN 22 mg/dL (7-18); Bilirubin, Total 0.4 mg/dL (0.2-1.0); CO2 27.5 mmol/L (21.0-32.0); CREATININE 1.1 mg/dL (0.70-1.30); Calcium 8.6 mg/dL (8.5-10.1); Chloride 108 mmol/L (98-107); Estimated GFR 71.77 (mL/min/1.73m2); Glucose 138 mg/dL (74-106); LDH 228 U/L (85-227); Potassium 3.6 mmol/L (3.5-5.1); Sodium 145 mmol/L (136-145); Total Protein 6.2 g/dL (6.4-8.2)
== END 2023-08-24 23:59 | disposition home or self-care (01) ==
LOC: INF 01:18
PROVIDERS: PCP Nurse Practitioner Family; Visit Provider Internal Medicine Hematology & Oncology
DX: Z45.2 Encounter for adjustment and management of vascular access device (principal); C83.38 Diffuse large B-cell lymphoma, lymph nodes of multiple sites
CPT/HCPCS: 36591; 80053; 96523; 83615; 85025

== ENCOUNTER 2023-08-27 02:16 | Outpatient (RCR) | payer MEDICARE, SELFPAY ==
[2023-08-27 07:46] LABS: Abs Immature Grans 0.61 10^3/uL (0.0-0.06); Absolute Eosinophil Count 0.54 10^3/uL (0.0-0.7); Absolute Lymphocyte Count 0.67 10^3/uL (1.2-3.4); Absolute Neutrophil Count 6.05 10^3/uL (1.2-6.7); Basophils % 1.1 %; Eosinophils % 5.7 %; HCT 44.7 % (40.0-50.0); HGB 14.6 g/dL (13.5-17.5); Immature Grans % 6.4 %; Lymphocytes % 7.1 %; MCH 29.3 pg (27.0-33.0); MCHC 32.7 % (32.0-36.0); MCV 90 fL (80-95); MPV 9.4 fL (8.0-11.0); Monocytes % 15.8 %; Neutrophils % 63.9 %; Platelet Count 186 10^3/uL (130-400); RBC 4.99 10^6/uL (4.36-5.78); RDW 14.9 % (11.8-14.1); RDW-SD 48.9 fL; WBC 9.47 10^3/uL (4.4-10.8)
[2023-08-27] MEDS: Normal Saline Flush 10 ML SYR IVP (08:01)
[2023-08-27 08:13] LABS: ALT 67 U/L (16-63); AST 35 U/L (15-37); Albumin 3.5 g/dL (3.4-5.0); Alkaline Phosphatase 87 U/L (46-116); Anion Gap 6.1 mmol/L (3-11); BUN 18 mg/dL (7-18); Bilirubin, Total 0.81 mg/dL (0.2-1.0); CO2 29.9 mmol/L (21.0-32.0); CREATININE 1.1 mg/dL (0.70-1.30); Calcium 8.8 mg/dL (8.5-10.1); Chloride 102 mmol/L (98-107); Estimated GFR 71.77 (mL/min/1.73m2); Glucose 94 mg/dL (74-106); LDH 190 U/L (85-227); Potassium 4.3 mmol/L (3.5-5.1); Sodium 138 mmol/L (136-145); Total Protein 6.8 g/dL (6.4-8.2)
[2023-08-27 08:40] LABS: Diff Comment Agrees w/ Instrument; RBC Morphology Normal
== END 2023-09-24 23:59 | disposition home or self-care (01) ==
LOC: INF 02:16
PROVIDERS: PCP Nurse Practitioner Family; Visit Provider Internal Medicine Hematology & Oncology
DX: C83.38 Diffuse large B-cell lymphoma, lymph nodes of multiple sites (principal); Z45.2 Encounter for adjustment and management of vascular access device
CPT/HCPCS: 36591; 80053; 83615; 85025

== ENCOUNTER 2023-09-10 10:06 | Outpatient (REF) | payer MEDICARE, SELFPAY ==
[2023-09-10 10:13] LABS: Abs Immature Grans 0.44 10^3/uL (0.0-0.06); HCT 35.5 % (40.0-50.0); HGB 12.1 g/dL (13.5-17.5); MCH 29.2 pg (27.0-33.0); MCHC 34.1 % (32.0-36.0); MCV 86 fL (80-95); MPV 9.9 fL (8.0-11.0); Platelet Count 184 10^3/uL (130-400); RBC 4.14 10^6/uL (4.36-5.78); RDW 14.6 % (11.8-14.1); RDW-SD 45.1 fL; WBC 7.53 10^3/uL (4.4-10.8)
[2023-09-10 10:27] LABS: ALT 22 U/L (16-63); AST 13 U/L (15-37); Absolute Basophil Count 0.08 10^3/uL (0.0-0.2); Absolute Eosinophil Count 0.75 10^3/uL (0.0-0.7); Absolute Lymphocyte Count 0.75 10^3/uL (1.2-3.4); Absolute Monocyte Count 0.53 10^3/uL (0.1-0.8); Absolute Neutrophil Count 5.35 10^3/uL (1.2-6.7); Albumin 2.6 g/dL (3.4-5.0); Alkaline Phosphatase 72 U/L (46-116); Anion Gap 5.1 mmol/L (3-11); Atypical Lymphocytes % 3 %; BUN 19 mg/dL (7-18); Bands % 2 %; Bilirubin, Total 0.73 mg/dL (0.2-1.0); CO2 27.9 mmol/L (21.0-32.0); CREATININE 1.3 mg/dL (0.70-1.30); Calcium 8.1 mg/dL (8.5-10.1); Chloride 104 mmol/L (98-107); Estimated GFR 58.73 (mL/min/1.73m2); Glucose 156 mg/dL (74-106); Potassium 3.9 mmol/L (3.5-5.1); Sodium 137 mmol/L (136-145); Total Protein 5.7 g/dL (6.4-8.2)
[2023-09-10 10:28] LABS: Diff Comment Manual Differential; Myelocytes % 1; RBC Morphology Normal
== END 2023-09-10 10:07 | disposition home or self-care (01) ==
LOC: LBN 10:06
PROVIDERS: PCP Nurse Practitioner Family; Visit Provider Internal Medicine Hematology & Oncology
DX: C83.38 Diffuse large B-cell lymphoma, lymph nodes of multiple sites (principal)
CPT/HCPCS: 80053; 85025

== ENCOUNTER 2023-10-08 02:36 | Outpatient (RCR) | payer MEDICARE, SELFPAY ==
[2023-10-08] MEDS: Normal Saline Flush 10 ML SYR IVP (07:43)
[2023-10-08 08:52] LABS: Abs Immature Grans 0.05 10^3/uL (0.0-0.06); Absolute Basophil Count 0.08 10^3/uL (0.0-0.2); Absolute Eosinophil Count 0.31 10^3/uL (0.0-0.7); Absolute Lymphocyte Count 1.61 10^3/uL (1.2-3.4); Absolute Monocyte Count 1.64 10^3/uL (0.1-0.8); Absolute Neutrophil Count 4.02 10^3/uL (1.2-6.7); HCT 39.2 % (40.0-50.0); HGB 13.2 g/dL (13.5-17.5); Immature Grans % 0.6 %; Lymphocytes % 20.9 %; MCH 28.9 pg (27.0-33.0); MCHC 33.7 % (32.0-36.0); MCV 86 fL (80-95); MPV 9.3 fL (8.0-11.0); Monocytes % 21.3 %; Neutrophils % 52.2 %; Platelet Count 178 10^3/uL (130-400); RBC 4.56 10^6/uL (4.36-5.78); RDW 16.7 % (11.8-14.1); RDW-SD 50.4 fL; WBC 7.71 10^3/uL (4.4-10.8)
[2023-10-08 09:09] LABS: RBC Morphology Normal
[2023-10-08 09:10] LABS: Diff Comment Diff Reviewed
[2023-10-08 09:16] LABS: ALT 22 U/L (16-63); AST 13 U/L (15-37); Albumin 3.5 g/dL (3.4-5.0); Alkaline Phosphatase 71 U/L (46-116); Anion Gap 7.6 mmol/L (3-11); BUN 28 mg/dL (7-18); Bilirubin, Total 0.59 mg/dL (0.2-1.0); CO2 27.4 mmol/L (21.0-32.0); CREATININE 1.2 mg/dL (0.70-1.30); Calcium 8.8 mg/dL (8.5-10.1); Chloride 108 mmol/L (98-107); Estimated GFR 64.65 (mL/min/1.73m2); Glucose 80 mg/dL (74-106); LDH 162 U/L (85-227); Potassium 4.2 mmol/L (3.5-5.1); Sodium 143 mmol/L (136-145); Total Protein 6.1 g/dL (6.4-8.2)
== END 2023-10-25 23:59 | disposition home or self-care (01) ==
LOC: INF 02:36
PROVIDERS: PCP Nurse Practitioner Family; Visit Provider Internal Medicine Hematology & Oncology
DX: C83.38 Diffuse large B-cell lymphoma, lymph nodes of multiple sites (principal); Z45.2 Encounter for adjustment and management of vascular access device
CPT/HCPCS: 36591; 80053; 83615; 85025

== ENCOUNTER 2023-11-12 02:41 | Outpatient (RCR) | payer MEDICARE, SELFPAY ==
[2023-11-12] MEDS: Normal Saline Flush 10 ML SYR IVP (07:21)
[2023-11-12 07:47] LABS: Abs Immature Grans 0.03 10^3/uL (0.0-0.06); Absolute Eosinophil Count 0.14 10^3/uL (0.0-0.7); Absolute Lymphocyte Count 1.43 10^3/uL (1.2-3.4); Absolute Monocyte Count 0.92 10^3/uL (0.1-0.8); Absolute Neutrophil Count 2.42 10^3/uL (1.2-6.7); Eosinophils % 2.8 %; HCT 37.8 % (40.0-50.0); HGB 12.9 g/dL (13.5-17.5); Immature Grans % 0.6 %; Lymphocytes % 28.4 %; MCH 30.2 pg (27.0-33.0); MCHC 34.1 % (32.0-36.0); MCV 89 fL (80-95); MPV 8.7 fL (8.0-11.0); Monocytes % 18.3 %; Neutrophils % 47.9 %; Platelet Count 203 10^3/uL (130-400); RBC 4.27 10^6/uL (4.36-5.78); RDW 17.3 % (11.8-14.1); RDW-SD 55.6 fL; WBC 5.04 10^3/uL (4.4-10.8)
[2023-11-12 08:05] LABS: ALT 28 U/L (16-63); AST 14 U/L (15-37); Albumin 3.6 g/dL (3.4-5.0); Alkaline Phosphatase 72 U/L (46-116); Anion Gap 4.5 mmol/L (3-11); BUN 29 mg/dL (7-18); Bilirubin, Total 0.61 mg/dL (0.2-1.0); CO2 29.5 mmol/L (21.0-32.0); CREATININE 1.3 mg/dL (0.70-1.30); Calcium 8.8 mg/dL (8.5-10.1); Chloride 108 mmol/L (98-107); Estimated GFR 58.73 (mL/min/1.73m2); Glucose 88 mg/dL (74-106); LDH 183 U/L (85-227); Potassium 4.1 mmol/L (3.5-5.1); Sodium 142 mmol/L (136-145); Total Protein 6.2 g/dL (6.4-8.2)
== END 2023-11-24 23:59 | disposition home or self-care (01) ==
LOC: INF 02:41
PROVIDERS: PCP Nurse Practitioner Family; Visit Provider Internal Medicine Hematology & Oncology
DX: C83.38 Diffuse large B-cell lymphoma, lymph nodes of multiple sites (principal)
CPT/HCPCS: 36591; 80053; 83615; 85025

== ENCOUNTER 2023-12-03 00:35 | Outpatient (CLI) | payer MEDICARE, SELFPAY ==
--- NOTE | 2023-12-03 08:30 | DI.US_ITS ---
APPROVED REPORT EXAM: Comprehensive 2D, Doppler, and color-flow Echocardiogram Patient Location: Out-Patient Strip Roller: Sofi Cates RDCS (AE) Indications: Pre transplant, B Cell lymphoma, High risk medication in use Other Information Study Quality: Adequate Conclusion Normal left ventricular wall thickness and chamber size. Ejection fraction is 59%. Wall motion is n ormal Normal right ventricular size and function Both atria are normal in size Aortic valve is mildly calcified and trileaflet. There is mild aortic stenosis with a mean gradient of 12 mmHg. There is trace aortic regurgitation Normal mitral valve with trace regurgitation Normal tricuspid valve with mild regurgitation. Estimated right ventricular systolic pressure is 35 mmHg Wall motion Left Ventricle The left ventricle is normal size. The left ventricular systolic function is normal. The left ventric ular ejection fraction is within the normal range. GLS is 16.3% There is normal left ventricular wall thickness. There is normal LV segmental wall motion. There is no ventricular septal defect visualize d. LVEF is 59%. Right Ventricle The right ventricle is normal size. The right ventricular systolic function is normal. Atria The left atrium size is normal. The right atrium size is normal. The interatrial septum is intact wit h no evidence for an atrial septal defect. Aortic Valve Aortic valve is mildly calcified. Aortic valve is trileaflet. Mild aortic stenosis. Mean gradient is 12 mmHg Trace aortic regurgitation. Mitral Valve The mitral valve is normal in structure. No evidence of mitral valve stenosis. Trace mitral regurgita tion. Tricuspid Valve The tricuspid valve is normal in structure. There is no tricuspid valve stenosis. Mild tricuspid regu rgitation. The RVSP is 34.7mmHg. Pulmonic Valve The pulmonary valve is normal in structure. There is no pulmonic valvular stenosis. Trace pulmonic re gurgitation. Great Vessels The aortic root is normal in size. The ascending aorta is normal in size. Aortic arch is normal in ca liber. IVC is normal in size and collapses >50% with inspiration. Pericardium There is no pericardial effusion. 2D Dimensions IVSD d PLAX 1.03 cm M: 0.6-1.2 Ao Root d 3.18 cm M: 3.1 - 3.7 LVPW d PLAX 1.00 cm M: 0.6 - 1.2 Ao Asc Diam d 3.33 cm M: 2.6 - 3.4 LVID d PLAX 5.32 cm M: 4.2 - 5.8 LVDs 3.75 cm M: 2.5 - 4.0 LV EF Teichholz 56.2 % FS 29.59 % LV EDV (Teich) 136.5 mL LV ESV (Teich) 59.8 mL M-Mode TAPSE 2.15 cm (M/F) >1.7 Auto EF LV EDV A4C 149.1 mL LV EDV A2C 165.0 mL LV EDV BP 156.1 mL LV ESV A4C 71.2 mL LV ESV A2C 69.3 mL LV ESV BP 69.9 mL LVEF(%) A4C 52.1 % LVEF(%) A2C 57.9 % LVEF(%) BP 55.3 % LV SV A4C 77.9 ml LV SV A2C 95.7 ml LV SV BP 86.1 ml LV CO A4C 3.8 L/min LV CO A2C 4.7 L/min LV CO BP 4.3 L/min HR A4C 48.47 BPM HR A2C 48.89 BPM LV EDV Index (BP) LV Strain Long Pk Overal Avg (s) 16.28 LA Volume LA Length A4C 6.1 cm LA Length A2C 5.5 cm LA Area A4C s 20.14 cm2 LA Area A2C s 21.11 cm2 LA Vol A4C A-L 56.07 mL LA Vol A2C A-L 69.11 mL LA Vol Biplane A-L 65.9 mL LA Vol/BSA A4C A-L LA Vol/BSA A2C A-L LA Vol/BSA BP A-L 30.0 mL/m2 LA Vol A4C MOD 52.2 mL LA Vol A2C MOD 64.9 mL LA Vol BP MOD 61.4 mL RA Volume RA Area A4C 18.0 cm2 RA ESV A4C (A-L) 51.5mL RA Vol/BSA A4C A-L RA Length A4C 5.3 cm RA ESV A4C (MOD) 49.6mL LV Diastology MV E' medial 0.081 (>0.07 m/s) MV E Vmax 0.77 (0.4-1.3 m/s) MV E/E' MED 9.49 (<14) MV A Vmax 0.60 (0.4-1.3 m/s) MV E' lateral 0.103 (>0.1 m/s) E/A Ratio 1.3 MV E/E' LAT 7.51 (<14) MV E' Average 0.092 m/s MV E/E'(average) 8.39 Aortic Valve AoV Vmax 2.42 m/s LVOT Vmax 1.26 m/s AoV Peak Grad 23.3 mmHg LVOT Peak Grad 6.3 mmHg AoV Area (Vmax) 2.02 cm2 LVOT VTI 0.311 m AoV VTI 0.537 m LVOT Mean Grad 3.8 mmHg AoV Mean Jorge. 1.64 m/s LVOT SV 120.73 mL AoV Mean Grad 12.1 mmHg LVOT Diam s 2.20 cm AoV Area (VTI) 2.25 cm2 AV Regurg Peak Gr. 23.33 mmHg Velocity Ratio 0.52 Mitral Valve MV DT 206 (160-240 msec) MV Vmax TIPS 0.91 m/s MV Mean Grad 1.0 (<2mmHg) MV VTI 0.331 m Pulmonary Valve PV Vmax 1.40 (0.5-1.5 m/s) RVOT Vmax 0.72 m/s PV Peak Grad 7.9 mmHg RVOT Peak Gr. 2.1 mmHg PV Mean Jorge 0.84 m/s RVOT VTI 0.195 m PV Mean Grad 3.3 mmHg RVOT Mean Gr. 1.2 mmHg Tricuspid Valve RA Pressure 3.00 mmHg TR Vmax 2.81 m/s TV S' 0.14 m/s TR Peak Grad 31.6 mmHg RVSP (TR) 34.7 mmHg
== END 2023-12-03 00:55 ==
LOC: DI 00:38
PROVIDERS: PCP Nurse Practitioner Family; Visit Provider Internal Medicine Hematology & Oncology
DX: C83.38 Diffuse large B-cell lymphoma, lymph nodes of multiple sites (principal); Z01.818 Encounter for other preprocedural examination; Z79.899 Other long term (current) drug therapy
CPT/HCPCS: 93306

== ENCOUNTER 2023-12-10 03:14 | Outpatient (RCR) | payer MEDICARE, SELFPAY ==
[2023-12-10] MEDS: Normal Saline Flush 10 ML SYR IVP (07:42)
[2023-12-10 08:04] LABS: Abs Immature Grans 0.02 10^3/uL (0.0-0.06); Absolute Basophil Count 0.11 10^3/uL (0.0-0.2); Absolute Eosinophil Count 0.15 10^3/uL (0.0-0.7); Absolute Lymphocyte Count 1.37 10^3/uL (1.2-3.4); Absolute Monocyte Count 1.62 10^3/uL (0.1-0.8); Basophils % 1.6 %; Eosinophils % 2.2 %; HCT 37.9 % (40.0-50.0); HGB 12.8 g/dL (13.5-17.5); Immature Grans % 0.3 %; Lymphocytes % 19.9 %; MCH 30.2 pg (27.0-33.0); MCHC 33.8 % (32.0-36.0); MCV 89 fL (80-95); MPV 8.9 fL (8.0-11.0); Monocytes % 23.6 %; Neutrophils % 52.4 %; Platelet Count 151 10^3/uL (130-400); RBC 4.24 10^6/uL (4.36-5.78); RDW-SD 55.9 fL; WBC 6.87 10^3/uL (4.4-10.8)
[2023-12-10 08:20] LABS: ALT 22 U/L (16-63); AST 11 U/L (15-37); Albumin 3.6 g/dL (3.4-5.0); Alkaline Phosphatase 86 U/L (46-116); Anion Gap 7.4 mmol/L (3-11); BUN 22 mg/dL (7-18); CO2 26.6 mmol/L (21.0-32.0); CREATININE 1.1 mg/dL (0.70-1.30); Calcium 8.5 mg/dL (8.5-10.1); Chloride 108 mmol/L (98-107); Estimated GFR 71.77 (mL/min/1.73m2); Glucose 99 mg/dL (74-106); LDH 130 U/L (85-227); Sodium 142 mmol/L (136-145); Total Protein 6.5 g/dL (6.4-8.2)
[2023-12-10 08:34] LABS: Diff Comment Diff Reviewed; RBC Morphology Normal
== END 2023-12-25 23:59 | disposition home or self-care (01) ==
LOC: INF 03:14
PROVIDERS: PCP Nurse Practitioner Family; Visit Provider Internal Medicine Hematology & Oncology
DX: C83.38 Diffuse large B-cell lymphoma, lymph nodes of multiple sites (principal); Z45.2 Encounter for adjustment and management of vascular access device
CPT/HCPCS: 36591; 80053; 83615; 85025

== ENCOUNTER 2024-03-12 09:04 | Outpatient (RCR) | payer MEDICARE, SELFPAY ==
[2024-03-12] MEDS: Normal Saline Flush 10 ML SYR IVP (09:41)
[2024-03-12 09:46] LABS: Abs Immature Grans 0.02 10^3/uL (0.0-0.06); Absolute Basophil Count 0.09 10^3/uL (0.0-0.2); Absolute Eosinophil Count 0.14 10^3/uL (0.0-0.7); Absolute Lymphocyte Count 0.94 10^3/uL (1.2-3.4); Absolute Monocyte Count 0.63 10^3/uL (0.1-0.8); Absolute Neutrophil Count 3.48 10^3/uL (1.2-6.7); Basophils % 1.7 %; Eosinophils % 2.6 %; HCT 39.3 % (40.0-50.0); HGB 13.4 g/dL (13.5-17.5); Immature Grans % 0.4 %; Lymphocytes % 17.7 %; MCH 30.5 pg (27.0-33.0); MCHC 34.1 % (32.0-36.0); MCV 89 fL (80-95); Monocytes % 11.9 %; Neutrophils % 65.7 %; Platelet Count 178 10^3/uL (130-400); RDW 14.3 % (11.8-14.1); RDW-SD 46.5 fL
[2024-03-12 09:58] LABS: ALT 31 U/L (16-63); AST 16 U/L (15-37); Albumin 3.9 g/dL (3.4-5.0); Alkaline Phosphatase 110 U/L (46-116); Anion Gap 6.6 mmol/L (3-11); BUN 22 mg/dL (7-18); Bilirubin, Total 0.67 mg/dL (0.2-1.0); CO2 30.4 mmol/L (21.0-32.0); CREATININE 1.2 mg/dL (0.70-1.30); Calcium 8.8 mg/dL (8.5-10.1); Chloride 107 mmol/L (98-107); Estimated GFR 64.65 (mL/min/1.73m2); Glucose 97 mg/dL (74-106); LDH 149 U/L (85-227); Potassium 4.4 mmol/L (3.5-5.1); Sodium 144 mmol/L (136-145); Total Protein 6.7 g/dL (6.4-8.2)
== END 2024-03-26 23:59 | disposition home or self-care (01) ==
LOC: INF 09:04
PROVIDERS: PCP Nurse Practitioner Family; Visit Provider Internal Medicine Hematology & Oncology
DX: C83.38 Diffuse large B-cell lymphoma, lymph nodes of multiple sites (principal)
CPT/HCPCS: 36591; 80053; 83615; 85025

== ENCOUNTER 2024-06-23 01:27 | Outpatient (RCR) | payer MEDICARE, SELFPAY ==
[2024-06-23] MEDS: Normal Saline Flush 10 ML SYR IVP (11:28)
[2024-06-23 11:42] LABS: Abs Immature Grans 0.03 10^3/uL (0.0-0.06); Absolute Basophil Count 0.07 10^3/uL (0.0-0.2); Absolute Eosinophil Count 0.32 10^3/uL (0.0-0.7); Absolute Lymphocyte Count 2.48 10^3/uL (1.2-3.4); Absolute Monocyte Count 1.31 10^3/uL (0.1-0.8); Absolute Neutrophil Count 5.31 10^3/uL (1.2-6.7); Basophils % 0.7 %; Eosinophils % 3.4 %; HCT 37.6 % (40.0-50.0); HGB 13.5 g/dL (13.5-17.5); Immature Grans % 0.3 %; Lymphocytes % 26.1 %; MCH 33.7 pg (27.0-33.0); MCHC 35.9 % (32.0-36.0); MCV 94 fL (80-95); MPV 9.1 fL (8.0-11.0); Monocytes % 13.8 %; Neutrophils % 55.7 %; Platelet Count 153 10^3/uL (130-400); RBC 4.01 10^6/uL (4.36-5.78); RDW 13.2 % (11.8-14.1); RDW-SD 45.1 fL; WBC 9.52 10^3/uL (4.4-10.8)
[2024-06-23 12:05] LABS: AST 22 U/L (15-37); Alkaline Phosphatase 84 U/L (46-116); Anion Gap 10.4 mmol/L (3-11); Bilirubin, Total 0.7 mg/dL (0.2-1.0); CO2 25.6 mmol/L (21.0-32.0); Chloride 105 mmol/L (98-107); Potassium 3.9 mmol/L (3.5-5.1); Sodium 141 mmol/L (136-145); Total Protein 6.7 g/dL (6.4-8.2)
[2024-06-23 12:15] LABS: ALT 41 U/L (16-63); Albumin 4.2 g/dL (3.4-5.0); BUN 28 mg/dL (7-18); CREATININE 1.2 mg/dL (0.70-1.30); Calcium 9.1 mg/dL (8.5-10.1); Estimated GFR 64.25 (mL/min/1.73m2); Glucose 91 mg/dL (74-106)
[2024-06-23 12:38] LABS: LDH 147 U/L (85-227)
[2024-06-24 09:25] LABS: IgG 375 mg/dL (610-1616)
[2024-06-25 14:29] LABS: CMV DNA Detect/Quant, P Undetected IU/mL (Undetected)
== END 2024-06-23 23:59 | disposition home or self-care (01) ==
LOC: INF 01:27
PROVIDERS: PCP Nurse Practitioner Family; Visit Provider Internal Medicine Hematology & Oncology
DX: Z92.850 Personal history of Chimeric Antigen Receptor T-cell therapy (principal); C83.38 Diffuse large B-cell lymphoma, lymph nodes of multiple sites; Z79.899 Other long term (current) drug therapy; Z45.2 Encounter for adjustment and management of vascular access device
CPT/HCPCS: 36591; 80053; 82784; 83615; 85025; 87497

== ENCOUNTER 2024-07-16 13:39 | Outpatient (RCR) | payer MEDICARE, SELFPAY ==
[2024-07-16] MEDS: Normal Saline Flush 10 ML SYR IVP (13:42)
[2024-07-16 13:52] LABS: Abs Immature Grans 0.02 10^3/uL (0.0-0.06); Absolute Basophil Count 0.05 10^3/uL (0.0-0.2); Absolute Eosinophil Count 0.17 10^3/uL (0.0-0.7); Absolute Neutrophil Count 3.41 10^3/uL (1.2-6.7); Basophils % 0.9 %; HCT 34.4 % (40.0-50.0); HGB 12.3 g/dL (13.5-17.5); Immature Grans % 0.3 %; Lymphocytes % 22.6 %; MCH 32.5 pg (27.0-33.0); MCHC 35.8 % (32.0-36.0); MCV 91 fL (80-95); MPV 9.1 fL (8.0-11.0); Monocytes % 13.9 %; Neutrophils % 59.3 %; Platelet Count 189 10^3/uL (130-400); RBC 3.79 10^6/uL (4.36-5.78); RDW 12.8 % (11.8-14.1); RDW-SD 41.9 fL; WBC 5.75 10^3/uL (4.4-10.8)
[2024-07-16 14:07] LABS: ALT 33 U/L (16-63); AST 15 U/L (15-37); Albumin 3.8 g/dL (3.4-5.0); Alkaline Phosphatase 102 U/L (46-116); Anion Gap 9.3 mmol/L (3-11); BUN 23 mg/dL (7-18); Bilirubin, Total 0.4 mg/dL (0.2-1.0); CO2 26.7 mmol/L (21.0-32.0); CREATININE 1.4 mg/dL (0.70-1.30); Calcium 8.5 mg/dL (8.5-10.1); Chloride 107 mmol/L (98-107); Glucose 110 mg/dL (74-106); LDH 183 U/L (85-227); Potassium 3.8 mmol/L (3.5-5.1); Sodium 143 mmol/L (136-145); Total Protein 6.2 g/dL (6.4-8.2)
[2024-07-19 10:09] LABS: IgA 14 mg/dL (85-499); IgG 333 mg/dL (610-1616); IgM 55 mg/dL (35-242)
[2024-07-19 19:30] LABS: CMV DNA Detect/Quant, P Undetected IU/mL (Undetected)
== END 2024-07-24 23:59 | disposition home or self-care (01) ==
LOC: INF 13:39
PROVIDERS: PCP Nurse Practitioner Family; Visit Provider Internal Medicine Hematology & Oncology
DX: C83.38 Diffuse large B-cell lymphoma, lymph nodes of multiple sites (principal); Z45.2 Encounter for adjustment and management of vascular access device
CPT/HCPCS: 36591; 80053; 82784; 83615; 85025; 87497

== ENCOUNTER 2024-08-11 11:31 | Outpatient (RCR) | payer MEDICARE, SELFPAY ==
[2024-08-11 12:00] LABS: Abs Immature Grans 0.01 10^3/uL (0.0-0.06); Absolute Basophil Count 0.06 10^3/uL (0.0-0.2); Absolute Eosinophil Count 0.16 10^3/uL (0.0-0.7); Absolute Lymphocyte Count 1.23 10^3/uL (1.2-3.4); Absolute Monocyte Count 0.79 10^3/uL (0.1-0.8); Basophils % 1.1 %; HCT 37.2 % (40.0-50.0); Immature Grans % 0.2 %; Lymphocytes % 23.4 %; MCH 31.3 pg (27.0-33.0); MCHC 34.9 % (32.0-36.0); MCV 90 fL (80-95); MPV 9.1 fL (8.0-11.0); Neutrophils % 57.3 %; Platelet Count 182 10^3/uL (130-400); RBC 4.15 10^6/uL (4.36-5.78); RDW 12.7 % (11.8-14.1); RDW-SD 41.2 fL; WBC 5.25 10^3/uL (4.4-10.8)
[2024-08-11] MEDS: Normal Saline Flush 10 ML SYR IVP (12:09)
[2024-08-11 12:24] LABS: ALT 35 U/L (16-63); AST 17 U/L (15-37); Albumin 4.1 g/dL (3.4-5.0); Alkaline Phosphatase 107 U/L (46-116); Anion Gap 10.8 mmol/L (3-11); BUN 26 mg/dL (7-18); Bilirubin, Total 0.6 mg/dL (0.2-1.0); CO2 26.2 mmol/L (21.0-32.0); CREATININE 1.2 mg/dL (0.70-1.30); Calcium 8.8 mg/dL (8.5-10.1); Chloride 107 mmol/L (98-107); Estimated GFR 64.25 (mL/min/1.73m2); Glucose 86 mg/dL (74-106); Potassium 4.1 mmol/L (3.5-5.1); Sodium 144 mmol/L (136-145)
[2024-08-12 09:48] LABS: IgA 19 mg/dL (85-499); IgG 601 mg/dL (610-1616); IgM 72 mg/dL (35-242)
[2024-08-13 20:01] LABS: CMV DNA Detect/Quant, P Undetected IU/mL (Undetected)
== END 2024-08-23 23:59 | disposition home or self-care (01) ==
LOC: INF 11:31
PROVIDERS: PCP Nurse Practitioner Family; Visit Provider Internal Medicine Hematology & Oncology
DX: C83.38 Diffuse large B-cell lymphoma, lymph nodes of multiple sites (principal); Z92.850 Personal history of Chimeric Antigen Receptor T-cell therapy; Z79.899 Other long term (current) drug therapy; Z45.2 Encounter for adjustment and management of vascular access device
CPT/HCPCS: 36591; 80053; 82784; 85025; 87497

== ENCOUNTER 2024-09-15 02:21 | Outpatient (RCR) | payer MEDICARE, SELFPAY ==
[2024-09-15 10:36] LABS: Abs Immature Grans 0.01 10^3/uL (0.0-0.06); HCT 39.1 % (40.0-50.0); HGB 13.5 g/dL (13.5-17.5); Immature Grans % 0.2 %; MCH 30.3 pg (27.0-33.0); MCHC 34.5 % (32.0-36.0); MCV 88 fL (80-95); MPV 9.2 fL (8.0-11.0); Platelet Count 161 10^3/uL (130-400); RBC 4.46 10^6/uL (4.36-5.78); RDW 13.1 % (11.8-14.1); RDW-SD 41.7 fL; WBC 6.04 10^3/uL (4.4-10.8)
[2024-09-15] MEDS: Normal Saline Flush 10 ML SYR IVP (10:41)
[2024-09-15 10:57] LABS: ALT 35 U/L (16-63); AST 23 U/L (15-37); Albumin 4.0 g/dL (3.4-5.0); Alkaline Phosphatase 115 U/L (46-116); Anion Gap 12.0 mmol/L (3-11); BUN 21 mg/dL (7-18); Bilirubin, Total 0.4 mg/dL (0.2-1.0); CO2 25.0 mmol/L (21.0-32.0); Calcium 9.0 mg/dL (8.5-10.1); Chloride 107 mmol/L (98-107); Estimated GFR 71.32 (mL/min/1.73m2); Glucose 84 mg/dL (74-106); Potassium 4.0 mmol/L (3.5-5.1); Sodium 144 mmol/L (136-145); Total Protein 6.7 g/dL (6.4-8.2)
== END 2024-09-23 23:59 | disposition home or self-care (01) ==
LOC: INF 02:21
PROVIDERS: PCP Nurse Practitioner Family; Visit Provider Internal Medicine Hematology & Oncology
DX: C83.38 Diffuse large B-cell lymphoma, lymph nodes of multiple sites (principal); Z45.2 Encounter for adjustment and management of vascular access device
CPT/HCPCS: 36591; 80053; 82784; 85025; 87497

== ENCOUNTER 2024-10-11 08:46 | Outpatient (RCR) | payer MEDICARE, SELFPAY ==
[2024-10-11] MEDS: Normal Saline Flush 10 ML SYR IVP (08:49)
[2024-10-11 09:29] LABS: Abs Immature Grans 0.03 10^3/uL (0.0-0.06); HCT 39.7 % (40.0-50.0); HGB 14.0 g/dL (13.5-17.5); Immature Grans % 0.5 %; MCH 30.9 pg (27.0-33.0); MCHC 35.3 % (32.0-36.0); MCV 88 fL (80-95); MPV 9.1 fL (8.0-11.0); Platelet Count 192 10^3/uL (130-400); RBC 4.53 10^6/uL (4.36-5.78); RDW 13.7 % (11.8-14.1); RDW-SD 43.5 fL; WBC 6.62 10^3/uL (4.4-10.8)
[2024-10-11 09:53] LABS: ALT 38 U/L (16-63); Albumin 3.9 g/dL (3.4-5.0); Alkaline Phosphatase 118 U/L (46-116); Anion Gap 9.0 mmol/L (3-11); BUN 18 mg/dL (7-18); Bilirubin, Total 0.4 mg/dL (0.2-1.0); CO2 28.0 mmol/L (21.0-32.0); Calcium 8.8 mg/dL (8.5-10.1); Chloride 105 mmol/L (98-107); Estimated GFR 71.32 (mL/min/1.73m2); Glucose 138 mg/dL (74-106); Potassium 3.7 mmol/L (3.5-5.1); Sodium 142 mmol/L (136-145); Total Protein 6.5 g/dL (6.4-8.2)
[2024-10-11 10:08] LABS: AST 23 U/L (15-37)
== END 2024-10-24 23:59 | disposition home or self-care (01) ==
LOC: INF 08:46
PROVIDERS: PCP Nurse Practitioner Family; Visit Provider Internal Medicine Hematology & Oncology
DX: C83.38 Diffuse large B-cell lymphoma, lymph nodes of multiple sites (principal); Z45.2 Encounter for adjustment and management of vascular access device
CPT/HCPCS: 36591; 80053; 82784; 85025; 87497

== ENCOUNTER 2024-11-05 08:45 | Outpatient (RCR) | payer MEDICARE, SELFPAY ==
[2024-11-05 07:52] LABS: Abs Immature Grans 0.02 10^3/uL (0.0-0.06); HCT 39.4 % (40.0-50.0); HGB 13.6 g/dL (13.5-17.5); Immature Grans % 0.3 %; MCH 30.0 pg (27.0-33.0); MCHC 34.5 % (32.0-36.0); MCV 87 fL (80-95); MPV 9.1 fL (8.0-11.0); Platelet Count 193 10^3/uL (130-400); RBC 4.54 10^6/uL (4.36-5.78); RDW 13.9 % (11.8-14.1); RDW-SD 43.9 fL; WBC 6.57 10^3/uL (4.4-10.8)
[2024-11-05 08:21] LABS: ALT 29 U/L (16-63); AST 17 U/L (15-37); Albumin 4.0 g/dL (3.4-5.0); Alkaline Phosphatase 110 U/L (46-116); Anion Gap 5.8 mmol/L (3-11); BUN 22 mg/dL (7-18); Bilirubin, Total 0.6 mg/dL (0.2-1.0); CO2 29.2 mmol/L (21.0-32.0); Calcium 9.0 mg/dL (8.5-10.1); Chloride 107 mmol/L (98-107); Glucose 104 mg/dL (74-106); Potassium 4.3 mmol/L (3.5-5.1); Sodium 142 mmol/L (136-145); Total Protein 6.7 g/dL (6.4-8.2)
== END 2024-11-23 23:59 | disposition home or self-care (01) ==
LOC: INF 08:45
PROVIDERS: PCP Nurse Practitioner Family; Visit Provider Internal Medicine Hematology & Oncology
DX: C83.38 Diffuse large B-cell lymphoma, lymph nodes of multiple sites (principal); Z92.850 Personal history of Chimeric Antigen Receptor T-cell therapy; Z45.2 Encounter for adjustment and management of vascular access device
CPT/HCPCS: 36591; 80053; 82784; 85025; 87497